=== PATIENT | female | born 1945 | race Caucasian/White ===

== ENCOUNTER 2021-01-23 14:07 | Inpatient (IN) | payer MEDICARE, SELFPAY ==
[2021-01-23] VITALS (19 sets, daily range): BP systolic 95–148; BP diastolic 51–90; PULSE 82–90; RESP 16–29; TEMP 36.2; O2SAT 93–100
--- NOTE | ~2021-01-23 | NM_ITS ---
EXAMINATION: NM lupe stress w perfusion DATE: 01/31/2021 13:54 INDICATION: Chest pain. TECHNIQUE: Rest images were obtained following intravenous administration of 10.9 mCi Tc99m tetrofosm in (Myoview). The patient was infused intravenously with Lexiscan (regadenoson). Then, 34 mCi Tc99m t etrofosmin (Myoview) was administered intravenously, and stress images were obtained. Data was recons tructed into short axis and horizontal and vertical long axis SPECT images. Gated SPECT images were a lso obtained. COMPARISON: None. FINDINGS: There is a small, mild, fixed perfusion defect involving left ventricular apex and apical i nferior and apical lateral segments, consistent with infarct. No reversible component to suggest isch emia. There is apical hypokinesis. Left ventricular ejection fraction measures 41%. IMPRESSION: 1. Small area of mild infarct involving the left ventricular apex and apical inferior and apical late ral segments. 2. Apical hypokinesis with left ventricular ejection fraction measuring 41%. Reviewed, dictated and finalized at location A. HASING AND CLAIMS SUPERVISOR IMPRESSION: 1. Small area of mild infarct involving the left ventricular apex and apical in ferior and apical lateral segments. 2. Apical hypokinesis with left ventricular ejection fraction measuring 41%.
--- NOTE | ~2021-01-23 | US_ITS ---
EXAMINATION: US venous doppler LE EXAM DATE: 01/24/2021 09:57 INDICATION: Bilateral leg edema. TECHNIQUE: Multiple grayscale, color flow and Doppler images of the lower extremity deep venous syste ms bilaterally were obtained and reviewed. There is no prior study for comparison. FINDINGS: Right side: The right common femoral, femoral and profunda veins demonstrate normal color flow, respi ratory variation, augmentation and compressibility. Compressibility, color flow confirmed within the right popliteal, posterior tibial, peroneal, and greater saphenous veins. Left side: The left common femoral, femoral and profunda veins demonstrate normal color flow, respira tory variation, augmentation and compressibility. Compressibility, color flow confirmed within the l eft popliteal, posterior tibial, peroneal, and greater saphenous veins. IMPRESSION: No lower extremity deep venous thrombosis bilaterally. Reviewed, dictated and finalized at location B. [place] MEDIA PROJECT MANAGER
--- NOTE | ~2021-01-23 | XR_ITS ---
XR chest port-a-cath/central DATE: 01/25/2021 18:57 INDICATION: Tunneled dialysis catheter placement TECHNIQUE: Portable upright AP chest on 01/25/2021 at 1854 hours COMPARISON: 01/23/2021 PA and lateral chest FINDINGS: Left internal jugular dialysis catheter tip overlies the upper right atrium. Heart size is within normal range. There is mild infiltrate or atelectasis in the left upper and both mid and lower lung zones, most pro minent in the left lower lobe in the retrocardiac area, some air bronchograms. Mild bilateral pleural effusions. No pneumothorax. Aortic arch calcification. Diffuse osteopenia. Surgical clips overlie the left axillary area and left chest. Status post cholecystectomy IMPRESSION: Left internal jugular dialysis catheter tip overlies right atrium Mild infiltrate and/atelectasis left upper and both mid and lower lung zones Small bilateral pleural effusions Reviewed, dictated and finalized at Location A. Reviewed, dictated and finalized at location A. LE BREAKER
--- NOTE | ~2021-01-23 | XR_ITS ---
EXAMINATION: XR chest 2V EXAM DATE: 01/23/2021 14:38 INDICATION: Shortness of breath and chest pain. TECHNIQUE: Frontal and lateral projections of the chest obtained and reviewed. There is no prior nabeel dy for comparison. FINDINGS: Small to moderate left, small pleural effusions. Heart is normal in size. There is no pne umothorax suspected. Basilar increased density probably atelectasis. Pneumonia not excludable. Left a xillary surgical clips. IMPRESSION: 1. Small to moderate left, small pleural effusions with adjacent atelectasis. 2. Pneumonia not excludable. Reviewed, dictated and finalized at location B. AND WASHER
--- NOTE | ~2021-01-23 | XR_ITS ---
XR fl guide central line place DATE: 01/25/2021 18:52 INDICATION: Tunneled dialysis catheter placement TECHNIQUE: Single portable C-arm spot exposure of the chest 8.0 seconds fluoroscopy time 2.30 mGy COMPARISON: 01/25/2021 2 view chest FINDINGS: Left internal jugular dual-lumen catheter is noted, the distal tip not included in this exp osure. IMPRESSION: Left internal jugular dialysis catheter Reviewed, dictated and finalized at Location A. Reviewed, dictated and finalized at location A. CAL GLASS SAWYER
--- NOTE | 2021-01-23 14:14 | ECG_ITS ---
Measurements Intervals [place] Rate: 83 P: 44 [place]: 145 QRS: 46 QRSD: 88 T: 79 QT: 418 QTc: 493 Interpretive Statements SINUS RHYTHM BORDERLINE ST ABNORMALITY- ANTEROLATERAL LEADS BASELINE ARTIFACT- I, AVL BORDERLINE ECG Electronically Signed On 01-23-2021 14:40:30 ATTORNEY LAWYER by Jorge Alberto Alexander D.O.
[2021-01-23 14:35] LABS: Basophils Percent Auto 0.3 % (0.2-1.2); Eosinophils Absolute Auto 0.3 K/mm3 (0-0.3); Eosinophils Percent Auto 3.5 % (0-4.4); Hematocrit 22.8 % (37.0-47.0); Hemoglobin 7.4 g/dL (12.0-15.0); Immature Granulocyte Absolute 0.02 K/mm3 (0.00-0.031); Immature Granulocyte Percent A 0.3 % (0-0.5); Lymphocytes Absolute Auto 1.18 K/mm3 (0.9-3.2); Lymphocytes Percent Auto 15.1 % (18.3-44.2); Mean Corpuscular HGB Conc 32.5 g/dl (32-36); Mean Corpuscular Hemoglobin 29.7 pg (26-34); Mean Corpuscular Volume 91.6 fl (80-100); Mean Platelet Volume 10.3 fl (7.4-10.4); Monocytes Absolute Auto 0.6 K/mm3 (0.1-0.6); Monocytes Percent Auto 7.8 % (2.6-8.5); Neutrophils Absolute Auto 5.7 K/mm3 (1.3-6.7); Platelet Count Result 280 k/mm3 (150-375); Red Blood Count 2.49 M/mm3 (4.2-5.4); Red Cell Distribution Width 11.9 % (11.5-14.5); White Blood Count 7.8 K/mm3 (4.5-10.0)
[2021-01-23 14:44] LABS: INR 1.2; Partial Thromboplastin Time 27.5 SECONDS (22.3-36.8); Prothrombin Time 14.7 Seconds (11.1-14.7)
[2021-01-23 14:46] LABS: Alanine Aminotransferase 20 U/L (4-35); Albumin Level 3.9 g/dL (3.5-5.1); Alkaline Phosphatase 81 U/L (38-126); Anion Gap 12 mmol/L (8-16); Aspartate Amino Transferase 30 U/L (14-36); Bilirubin,Total 0.3 mg/dL (0.2-1.3); Blood Urea Nitrogen 71 mg/dL (7-17); Calcium 8.4 mg/dL (8.4-10.2); Carbon Dioxide 23 mmol/L (22-30); Chloride 106 mmol/L (98-107); Estimated CRCL calculation 10 ml/min; Estimated Glomerular Filt Rate 10; Glucose 148 mg/dL (65-110); Lipase 155 U/L (23-300); Potassium 3.8 mmol/L (3.4-5.0); Sodium 141 mmol/L (137-145)
[2021-01-23 15:00] LABS: Troponin I 0.053 ng/mL (0.000-0.034)
--- NOTE | 2021-01-23 15:55 | ED.GENADULT ---
HPI - General Adult General Chief complaint: Shortness of Breath/Dyspnea Stated complaint: sob Time Seen by Provider: 01/23/21 15:37 History of Present Illness HPI narrative: Patient is a 75-year-old female presents the emergency department with chief complaint of shortness of breath. Patient reports she has history of lung cancer also has history of chronic renal disease and is followed by nephrology. The patient states that she has had a fistula placed in preparation for eventual starting of dialysis the patient states she is been progressively more short of breath has had increasing peripheral edema and has now having to sleep in a recliner. Related Data Allergies Allergy/AdvReac Type Severity Reaction Status Date / Time No Known Allergies Allergy Unknown Verified 01/23/21 15:55 Review of Systems Review of Systems: A 10 system review of systems was completed on the patient and is negative except for what is stated in the HPI. Nursing and ancillary documentation was reviewed. Exam Narrative: GENERAL: Well-appearing, well-nourished, and in no acute distress. HEAD: Normocephalic, atraumatic. EYES: PERRLA and EOMI. ENT: Nares clear, no rhinorrhea or epistaxis. Mucous membranes moist. NECK: Supple. CHEST: Clear to auscultation. Mild respiratory distress. HEART: Regular rate and rhythm. No murmur heard. Normal peripheral pulses. ABDOMEN: Soft, nontender, nondistended, normal active bowel sounds. EXTREMITIES: Normal range of motion. +1 edema. SKIN: Warm, dry, no rash. NEURO: No focal deficits. Alert and oriented x3. PSYCH: Normal mood and affect. Course Course Emergency Course: Shows a sinus rhythm rate of [address] elevation or ST depression The patient's creatinine is 4.3 she has a BUN of 71. The patient's potassium is 3.8 her CO2 is 23. Patient has a troponin of 0.053 Case was discussed with the patient's spring coiler Dr. Jose levin the patient will be started on Bumex 2 mg every 12 hrs The plan will be to admit the patient to the hospitalist service for further intervention Vital Signs Vital signs: Vital Signs Temperature 36.2 C L 01/23/21 14:10 Pulse Rate 89 01/23/21 14:10 Respiratory Rate 18 01/23/21 14:10 Blood Pressure 141/55 H 01/23/21 14:10 Pulse Oximetry 100 01/23/21 14:10 Temperature 36.2 C L 01/23/21 14:10 Pulse Rate 84 01/23/21 15:54 Respiratory Rate 17 01/23/21 15:53 Blood Pressure 95/74 L 01/23/21 15:53 Pulse Oximetry 95 01/23/21 15:54 Medical Decision Making Vital Signs Vital Signs: Vital Signs Temperature 36.2 C L 01/23/21 14:10 Pulse Rate 89 01/23/21 14:10 Respiratory Rate 18 01/23/21 14:10 Blood Pressure 141/55 H 01/23/21 14:10 Pulse Oximetry 100 01/23/21 14:10 Temperature 36.2 C L 01/23/21 14:10 Pulse Rate 84 01/23/21 15:54 Respiratory Rate 17 01/23/21 15:53 Blood Pressure 95/74 L 01/23/21 15:53 Pulse Oximetry 95 01/23/21 15:54 Lab Data Result diagrams: 01/23/21 14:24 01/23/21 14:24 Labs: Lab Results 01/23/21 01/23/21 01/23/21 Range/Units 14:24 14:24 14:24 WBC 7.8 (4.5-10.0) K/mm3 RBC 2.49 L (4.2-5.4) M/mm3 Hgb 7.4 L (12.0-15.0) g/dL Hct 22.8 L (37.0-47.0) % MCV 91.6 (80-100) fl MCH 29.7 (26-34) pg MCHC 32.5 (32-36) g/dl RDW 11.9 (11.5-14.5) % Plt Count 280 (150-375) k/mm3 MPV 10.3 (7.4-10.4) fl Immature Gran % (Auto) 0.3 (0-0.5) % Neut % (Auto) 73.0 (45.5-73.1) % Lymph % (Auto) 15.1 L (18.3-44.2) % [place] % (Auto) 7.8 (2.6-8.5) % Eos % (Auto) 3.5 (0-4.4) % Baso % (Auto) 0.3 (0.2-1.2) % Lymph # (Auto) 1.18 (0.9-3.2) K/mm3 [place] # (Auto) 0.6 (0.1-0.6) K/mm3 Eos # (Auto) 0.3 (0-0.3) K/mm3 Baso # (Auto) 0.0 (0.0-0.1) K/mm3 Abs Immat Gran (auto) 0.02 (0.00-0.031) K/mm3 Absolute Neuts (auto) 5.7 (1.3-6.7) K/mm3 Absolute Nucleated RBC 0.0 (0.0-0.012) K/mm3 Nucleated RBC
[2021-01-23] MEDS: ASPIRIN 81 MG CHEWABLE TABLET 324 MG PO (16:32)
[2021-01-23] MEDS: BUMETANIDE INJ 1 MG/4 ML VIAL 2 MG IV PUSH (16:40)
--- NOTE | 2021-01-23 19:30 | PM.IMHP ---
H&P: HPI History of Present Illness Date/Time: 01/23/21 19:30 Chief Complaint: Shortness of breath. Narrative: This is a very pleasant 75-year-old female with chronic kidney disease not yet on dialysis, insulin-dependent type 2 diabetes, hypertension, seizure disorder, and breast cancer who presented to the emergency department earlier today via private vehicle from home for evaluation of shortness of breath. A right upper extremity AV fistula was created several months ago in anticipation for dialysis and she was hoping to hold off until after the holidays however she has had increasing edema, shortness of breath, and orthopnea. Her shortness of breath is so severe that she is now getting winded when getting dressed. Additionally she reports a 22 lb weight gain in the last 6 months. She thus came in today and it sounds as though Dr. Campos is going to initiate dialysis tomorrow. She denies fever, chills, sweats, cold and flu symptoms, chest pain and pleuritic pain. She has had some nausea and decreased appetite but denies vomiting. Review of Systems Review of Systems: Twelve systems were reviewed with pertinent positives and negatives as per HPI. No cold or flu symptoms. No sick contacts. She has not had any significant high or low glucose readings recently. No blurry vision, polydipsia, or polyuria. She does urinate and has not noticed a change in urine output. Except as documented, all other systems were reviewed and are negative. 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 Status post left breast mastectomy and chemoradiation. Currently taking Faslodex. Chronic anemia Chronic kidney disease, stage 5 Depression with anxiety Hypertension Insulin dependent type 2 diabetes mellitus Seizure disorder Vitamin D deficiency Surgical History Surgical History (Updated 01/23/21 @ 22:56 by Mackenzie Howell PA-C) History of cholecystectomy History of hysterectomy History of left mastectomy Status post creation of arteriovenous fistula Family History Family History (Updated 01/23/21 @ 22:56 by Mackenzie Howell PA-C) Other Chronic kidney disease Diabetes mellitus Hypertension Social History Social History (Updated 01/23/21 @ 22:57 by Mackenzie Howell PA-C) Social History: The patient lives in her own home in [place]. She is and has no children. 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 She smoked remotely and quit over 40 years ago. No alcohol or illicit substance abuse. She designates her dear friend Annie Meadows as her surrogate decision maker and she wishes to be a full code. Meds Home Medications and Allergies Home Medications Medication Instructions Recorded Confirmed Type amlodipine 01/23/21 History diclofenac sodium [Voltaren] TOPICAL 01/23/21 History ergocalciferol (vitamin D2) 01/23/21 History [Vitamin D2] furosemide 01/23/21 History insulin glargine [Lantus Solostar SUBCUT 01/23/21 History U-100 Insulin] levetiracetam PO 01/23/21 History oxycodone 5 mg PO Q4H PRN 01/23/21 01/23/21 History paroxetine HCl mg PO 01/23/21 History Allergies Allergy/AdvReac Type Severity Reaction Status Date / Time No Known Allergies Allergy Unknown Verified 01/23/21 15:55 Vital Signs Vital Signs - 24 hr 01/23/21 14:10 01/23/21 15:39 01/23/21 15:40 Temperature 97.1 F L Pulse Rate 89 90 Respiratory Rate 18 24 H Blood Pressure 141/55 H 130/90 Pulse Oximetry 100 96 94 01/23/21 15:46 01/23/21 15:53 01/23/21 15:54 Temperature Pulse Rate 86 84 84 Respiratory Rate 23 H 17 Blood Pressure 95/74 L 95/74 L Pulse Oximetry 97 97 95 01/23/21 16:33 01/23/21 17:01 01/23/21 17:31 Temperature Pulse Rate 84 82 86 Respiratory Rate 24 H 23 H 23 H Blood Pressure 130/74 134/55 L 140/67 Pulse Oximetry 95 96 95 01/23/21 18:01 01/23/21 19:01 01/23/21 20:
[2021-01-23 19:47] LABS: Troponin I 0.054 ng/mL (0.000-0.034)
[2021-01-23 20:58] LABS: Troponin I 0.058 ng/mL (0.000-0.034)
[2021-01-23 23:53] LABS: Hemoglobin A1C 5.9 % (<5.7)
[2021-01-24] VITALS (12 sets, daily range): BP systolic 128–149; BP diastolic 56–104; PULSE 74–106; RESP 18–23; TEMP 36.7–37.2; O2SAT 93–97; BMI 30.5
--- NOTE | 2021-01-24 00:47 | ADMGEN ---
This patient, Diamond Peace, was admitted to [facility] Surg Room 313-01 @ 2330. Patient/family oriented to hospital policies and general routines including ID bracelet, bed and alarms, visiting hours, pain management, procedures, bathroom and other care routines, personal items, smoking policy, room service/diet, and visiting hours. Information on how to activate the Rapid Response Team has been discussed. Patient/Family are encouraged to report perceived risks to care and to ask questions if they do not understand what they are told or what they should do.
[2021-01-24] MEDS: GLUCOSE ORAL GEL 15 GM OF GLUCSE IN 37.5 GM TUBE PO (01:05)
[2021-01-24 01:38] LABS: Glucose Point of Care 95 mg/dl (65-105)
[2021-01-24 01:38] LABS: Glucose Point of Care 31 mg/dl (65-105)
[2021-01-24 07:02] LABS: Hematocrit 22.6 % (37.0-47.0); Hemoglobin 7.3 g/dL (12.0-15.0); Mean Corpuscular HGB Conc 32.3 g/dl (32-36); Mean Corpuscular Hemoglobin 29.9 pg (26-34); Mean Corpuscular Volume 92.6 fl (80-100); Mean Platelet Volume 10.7 fl (7.4-10.4); Platelet Count Result 266 k/mm3 (150-375); Red Blood Count 2.44 M/mm3 (4.2-5.4); Red Cell Distribution Width 11.9 % (11.5-14.5); White Blood Count 7.3 K/mm3 (4.5-10.0)
[2021-01-24 07:16] LABS: Alanine Aminotransferase 18 U/L (4-35); Albumin Level 3.8 g/dL (3.5-5.1); Alkaline Phosphatase 70 U/L (38-126); Anion Gap 10 mmol/L (8-16); Aspartate Amino Transferase 23 U/L (14-36); Bilirubin,Total 0.3 mg/dL (0.2-1.3); Blood Urea Nitrogen 77 mg/dL (7-17); Calcium 8.3 mg/dL (8.4-10.2); Carbon Dioxide 24 mmol/L (22-30); Chloride 107 mmol/L (98-107); Estimated CRCL calculation 9 ml/min; Estimated Glomerular Filt Rate 9; Glucose 79 mg/dL (65-110); Magnesium 2.4 mg/dL (1.6-2.3); Phosphorus 4.9 mg/dL (2.5-4.5); Potassium 4.2 mmol/L (3.4-5.0); Sodium 141 mmol/L (137-145)
[2021-01-24 07:42] LABS: Thyroid Stimulating Hormone Reflex 0.871 uIU/mL (0.465-4.68)
[2021-01-24 07:59] LABS: Glucose Point of Care 43 mg/dl (65-105)
[2021-01-24 09:09] LABS: Glucose Point of Care 114 mg/dl (65-105)
[2021-01-24] MEDS: HEPARIN SODIUM 5,000 UNITS/ML VIAL 5000 UNITS SUB-Q ×2 (10:57→23:25)
[2021-01-24] MEDS: BUMETANIDE INJ 2.5 MG/10 ML VIAL 2 MG IV PUSH ×2 (10:57→18:56)
[2021-01-24 11:40] LABS: Glucose Point of Care 79 mg/dl (65-105)
--- NOTE | 2021-01-24 12:35 | PM.CNNEP ---
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 she has a AVF in place but it is still not mature enought to use hopefully, her symptoms should improve with more aggressive fluid removal with dialysis will need outpatient dialysis on discharge -- likely [facility] per patient's preference (2) Volume overload: Code(s): E87.70 - Fluid overload, unspecified Status: Acute Assessment and Plan: as evidenced by history as well as imaging studies on admission on IV bumex at this time suspect dialysis will do a better job of fluid removal (3) Anemia: Qualifiers: Anemia type: unspecified type Qualified Code(s): D64.9 - Anemia, unspecified Code(s): D64.9 - Anemia, unspecified Status: Chronic Assessment and Plan: partly related to CKD but underlying malignancy could be playing a role start Epogen with dialysis initiation PRBC transfusion per protocol follow trend of H/H (4) Hypertension: Code(s): I10 - Essential (primary) hypertension Status: Chronic Assessment and Plan: reasonable control at this time follow trend of hemodynamics (5) Insulin dependent type 2 diabetes mellitus: Code(s): E11.9 - Type 2 diabetes mellitus without complications; Z79.4 - ferry terminal agent (current) use of insulin Status: Chronic Assessment and Plan: follow accuchecks glycemic control Long and extensive discussion (> 20 minutes) with patient regarding her advanced kidney disease and symptoms leading to admission; discussed hemodialysis including risk, benefits, pros, cons...etc as well as the need for placement of a tunneled HD catheter; she is agreeable to proceed. Will continue to follow. History of Present Illness Reason for Consult Consult date: 01/24/21 Reason for consult: chronic renal failure Chief Complaint Chief complaint: Fluid Overload,Anemia Chronic Renal Failure History of Present Illness Narrative: The patient is a 75-year-old female with a past medical history as outlined below who presented to [facility] Emergency room for further evaluation of shortness of breath. The patient has had shortness of breath for the last few weeks and despite increasing her outpatient diuretic regimen, her shortness of breath has continued to worsen as well as increase in lower extremity edema. She has known advanced chronic kidney disease and in anticipation of the fact that she would likely need dialysis in the future, she had an AV fistula created several months ago but it still to soon for it to be used. She had hoped to hold off dialysis until after the holidays but her symptoms of progressive shortness of breath and increasing edema of led her to believe that she may not be able to do so which prompted her visit to the ER. Her shortness of breath is severe that she gets winded just getting up and moving around and even doing simple tasks of Danny daily living including getting dressed. Furthermore, she reports a 20-22 lb weight gain in the last several months that she believes is all fluid. Workup and evaluation emergency room demonstrated labs consistent with her known history of Gregorio chronic kidney disease as well as evidence of volume overload with regard to her lower extremity edema and chest x-ray findings. Her CBC was also notable for anemia probably related to both her kidney disease as well as her underlying history of cancer/malignancy. She did not appear to be any acute distress but it seemed visibly apparent that she was
--- NOTE | 2021-01-24 13:33 | PM.IMPN ---
Progress Note: A&P Assessment and Plan (1) Volume overload: Code(s): E87.70 - Fluid overload, unspecified Status: Acute Assessment and Plan: pt for dialysis today pt started on IV Bumex 2 mg q.12 hours in the interim. (2) Chronic kidney disease, stage 5: Code(s): N18.5 - Chronic kidney disease, stage 5 Status: Chronic Assessment and Plan: Pt to start dialysis (3) Elevated troponin: Code(s): R77.8 - Other specified abnormalities of plasma proteins Status: Acute Assessment and Plan: Chest pain resolved. Likely elevated in the setting of renal failure. (4) Chronic anemia: Code(s): D64.9 - Anemia, unspecified Status: Acute Assessment and Plan: Continue to monitor pt may benefit from epogen (5) Insulin dependent type 2 diabetes mellitus: Code(s): E11.9 - Type 2 diabetes mellitus without complications; Z79.4 - correction (current) use of insulin Status: Chronic Assessment and Plan: Continue basal insulin. Initiate sliding scale insulin, Accu-Cheks, and hypoglycemic protocol. Check hemoglobin A1c. (6) Seizure disorder: Code(s): G40.909 - Epilepsy, unspecified, not intractable, without status epilepticus Status: Acute Assessment and Plan: Continue levetiracetam level is pending (7) Hypertension: Code(s): I10 - Essential (primary) hypertension Status: Chronic Assessment and Plan: Blood pressures were reviewed and they are reasonably well controlled. Continue antihypertensives and monitor closely. Subjective Date/time seen: 01/24/21 13:33 Interval history: 75-year-old female with chronic kidney disease not yet on dialysis, insulin-dependent type 2 diabetes, hypertension, seizure disorder, and breast cancer who presented to the emergency department earlier today via private vehicle from home for evaluation of shortness of breath. pt here with increasing sob. Pt due to go to dialysis today for the first time. Pt already has dialysis access. Review of Systems Review of Systems: All systems reviewed & are unremarkable except as noted in HPI and below Exam Narrative: General: Mildly ill-appearing female sitting up in bed. Respiratory: Bl crackles at bases Cardiovascular: Regular rate and rhythm with S1-S2. Gastrointestinal: Abdomen is soft, nontender, and nondistended with positive bowel sounds. Skin: Warm and dry. Generalized pallor. Extremities: No cyanosis or clubbing. Neurological: Alert. Cranial nerves 2-12 are grossly intact. No gross focal deficits to casual conversation. Psychiatric: Pleasant and cooperative with normal mood and affect. Judgment and insight intact. Objective Data Vital Signs Vital Signs: Vital Signs - 24 hr 01/23/21 14:10 01/23/21 15:39 01/23/21 15:40 Temperature 36.2 C L Pulse Rate 89 90 Respiratory Rate 18 24 H Blood Pressure 141/55 H 130/90 Pulse Oximetry 100 96 94 01/23/21 15:46 01/23/21 15:53 01/23/21 15:54 Temperature Pulse Rate 86 84 84 Respiratory Rate 23 H 17 Blood Pressure 95/74 L 95/74 L Pulse Oximetry 97 97 95 01/23/21 16:33 01/23/21 17:01 01/23/21 17:31 Temperature Pulse Rate 84 82 86 Respiratory Rate 24 H 23 H 23 H Blood Pressure 130/74 134/55 L 140/67 Pulse Oximetry 95 96 95 01/23/21 18:01 01/23/21 19:01 01/23/21 20:01 Temperature Pulse Rate 90 87 84 Respiratory Rate 29 H 28 H 24 H Blood Pressure 143/59 H 129/51 L 146/64 H Pulse Oximetry 94 94 93 01/23/21 20:31 01/23/21 21:01 01/23/21 21:31 Temperature Pulse Rate 85 83 84 Respiratory Rate 24 H 16 20 Blood Pressure 135/60 142/67 H 133/64 Pulse Oximetry 95 94 94 01/23/21 22:01 01/23/21 22:31 01/23/21 23:01 Temperature Pulse Rate 87 85 85 Respiratory Rate 25 H 23 H 25 H Blood Pressure 148/69 H 140/69 133/71 Pulse Oximetry 93 95 94 01/23/21 23:31 01/24/21 00:01 01/24/21 00:25 Temperature 36
[2021-01-24 14:20] LABS: Anion Gap 7 mmol/L (8-16); Blood Urea Nitrogen 76 mg/dL (7-17); Calcium 8.3 mg/dL (8.4-10.2); Carbon Dioxide 24 mmol/L (22-30); Chloride 107 mmol/L (98-107); Estimated CRCL calculation 9 ml/min; Estimated Glomerular Filt Rate 10; Glucose 142 mg/dL (65-110); Hematocrit 23.6 % (37.0-47.0); Hemoglobin 7.6 g/dL (12.0-15.0); Mean Corpuscular HGB Conc 32.2 g/dl (32-36); Mean Corpuscular Hemoglobin 29.6 pg (26-34); Mean Corpuscular Volume 91.8 fl (80-100); Mean Platelet Volume 10.9 fl (7.4-10.4); Platelet Count Result 256 k/mm3 (150-375); Potassium 4.3 mmol/L (3.4-5.0); Red Blood Count 2.57 M/mm3 (4.2-5.4); Red Cell Distribution Width 11.9 % (11.5-14.5); Sodium 138 mmol/L (137-145); White Blood Count 7.8 K/mm3 (4.5-10.0)
--- NOTE | 2021-01-24 14:27 | PM.CNGS ---
Assessment and Plan Assessment and plan (1) Acute on chronic renal insufficiency: Code(s): N28.9 - Disorder of kidney and ureter, unspecified; N18.9 - Chronic kidney disease, unspecified Status: Acute Assessment and Plan: will setup for placement of tunneled hemodialysis catheter in the operating room History of Present Illness Consult details Consult date: 01/24/21 Reason for consult: other (acute renal failure) Requesting physician: Shawn Campos MD Narrative: The patient is a 75-year-old female with multiple medical issues presenting with severe shortness of breath. Workup is significant for acute on chronic renal failure with secondary fluid overload. The patient has been aggressively diuresed, however it is felt that she would be better served with hemodialysis. The patient has had a AV fistula placed, however it is not quite matured enough yet for use. We are consulted at this time for placement tunneled hemodialysis catheter. The patient denies any previous central venous catheterization. Review of Systems Constitutional: Constitutional: Denies anorexia, Denies body ache(s), Denies chills, Reports fatigue, Denies fever(s), Denies increased appetite, Reports lethargy, Reports malaise, Denies night sweats, Denies poor appetite, Reports weakness, Reports weight gain and Denies weight loss Eyes: Eyes: Reports no additional eye complaints ENT: Reports system reviewed and no additional complaints, except as documented Cardiovascular: Cardiovascular: Denies chest pain, Reports pedal edema, Reports edema, Reports dyspnea, Reports dyspnea on exertion and Reports orthopnea Respiratory: Respiratory: Reports dyspnea and Reports dyspnea on exertion Gastrointestinal: Gastrointestinal: Reports no additional gastrointestinal complaints Genitourinary: Genitourinary: Reports no additional female genitourinary complaints Musculoskeletal: Musculoskeletal: Reports no additional musculoskeletal complaints Integumentary/Breasts: Skin/Breast: Reports system reviewed and no additional complaints, except as docu Neurologic: Reports system reviewed and no additional complaints, except as documented Psychiatric: Psychiatric: Reports no additional psychiatric complaints Endocrine: Endocrine: Reports no additional endocrine complaints Hematologic/Lymphatic: Hematologic/Lymphatic: Reports no additional hematologic/lymphatic complaints Allergic/Immunologic: Allergic/Immunologic: Reports no additional allergic/immunologic complaints PMFSH Past Medical History Medical History 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 Status post left breast mastectomy and chemoradiation. Currently taking Faslodex. Chronic anemia Chronic kidney disease, stage 5 Depression with anxiety Hypertension Insulin dependent type 2 diabetes mellitus Seizure disorder Vitamin D deficiency Surgical History Surgical History History of cholecystectomy History of hysterectomy History of left mastectomy Status post creation of arteriovenous fistula Family History Family History Other Chronic kidney disease Diabetes mellitus Hypertension Social History Social History Social History: The patient lives in her own home in [place]. She is and has no children. 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 She smoked remotely and quit over 40 years ago. No alcohol or illicit substance abuse. She designates her dear friend Annie Meadows as her surrogate decision maker and she wishes to be a full code. Smoking packs per day: 1 Smoking cigarettes per day: 20.0 Smoking status: Former smoker Alcohol intake: never Substance use: never Spiritual care concerns: No Meds Home Medications and Allergies Ho
[2021-01-24 16:10] LABS: Glucose Point of Care 185 mg/dl (65-105)
[2021-01-24 20:24] LABS: Glucose Point of Care 135 mg/dl (65-105)
[2021-01-25] VITALS (14 sets, daily range): BP systolic 122–142; BP diastolic 46–90; PULSE 81–91; RESP 16–20; TEMP 36.6–37.2; O2SAT 92–100
[2021-01-25 03:38] LABS: Glucose Point of Care 94 mg/dl (65-105)
[2021-01-25 07:17] LABS: Albumin Level 3.7 g/dL (3.5-5.1); Anion Gap 10 mmol/L (8-16); Blood Urea Nitrogen 74 mg/dL (7-17); Calcium 8.3 mg/dL (8.4-10.2); Carbon Dioxide 25 mmol/L (22-30); Chloride 108 mmol/L (98-107); Estimated CRCL calculation 10 ml/min; Estimated Glomerular Filt Rate 10; Glucose 83 mg/dL (65-110); Phosphorus 4.7 mg/dL (2.5-4.5); Potassium 4.1 mmol/L (3.4-5.0); Sodium 143 mmol/L (137-145)
[2021-01-25 08:09] LABS: Hepatitis B Surface Antigen Negative (Negative)
[2021-01-25 08:14] LABS: HAV RESULT Negative (Negative); Hepatitis B Core IgM Result Negative (Negative)
[2021-01-25 08:26] LABS: Hepatitis B Surface Anti Res Negative; Hepatitis C Virus Antibody Negative (Negative)
[2021-01-25 08:29] LABS: Glucose Point of Care 113 mg/dl (65-105)
[2021-01-25] MEDS: BUMETANIDE INJ 2.5 MG/10 ML VIAL 2 MG IV PUSH (09:03)
[2021-01-25] MEDS: levETIRAcetam 250 MG TABLET PO (09:03)
[2021-01-25] MEDS: HEPARIN SODIUM 5,000 UNITS/ML VIAL 5000 UNITS SUB-Q ×2 (09:06→18:26)
[2021-01-25 09:38] LABS: Iron 55 ug/dL (37-170)
[2021-01-25 09:50] LABS: Percent Iron Saturation 23 % (20-50)
[2021-01-25 11:39] LABS: Glucose Point of Care 88 mg/dl (65-105)
--- NOTE | 2021-01-25 12:57 | P.PNNP_ITS ---
Progress Note: A&P Assessment and Plan (1) End stage renal disease: Code(s): N18.6 - End stage renal disease Status: Acute Assessment and Plan: * suspect disease has progressed to the point of requiring dialysis * no critical electrolyte abnormalities but fluid status has become increasing difficult to control with just diuretics * Surgery to place tunneled HD catheter today for initiation of FLORAL MANAGER/dialysis * she has a AVF in place but it is still not mature enought to use * hopefully, her symptoms should improve with more aggressive fluid removal with dialysis * will need outpatient dialysis on discharge -- [facility] per patient's preference (2) Volume overload: Code(s): E87.70 - Fluid overload, unspecified Status: Acute Assessment and Plan: * as evidenced by history as well as imaging studies on admission * on IV bumex at this time * suspect dialysis will do a better job of fluid removal (3) Anemia: Qualifiers: Anemia type: unspecified type Qualified Code(s): D64.9 - Anemia, unspecified Code(s): D64.9 - Anemia, unspecified Status: Chronic Assessment and Plan: * partly related to CKD but underlying malignancy could be playing a role * to start Epogen with dialysis initiation * PRBC transfusion per protocol * follow trend of H/H (4) Hypertension: Code(s): I10 - Essential (primary) hypertension Status: Chronic Assessment and Plan: * reasonable control at this time * follow trend of hemodynamics (5) Insulin dependent type 2 diabetes mellitus: Code(s): E11.9 - Type 2 diabetes mellitus without complications; Z79.4 - senior living (current) use of insulin Status: Chronic Assessment and Plan: * follow accuchecks * glycemic control Will continue to follow. Subjective Date/time seen: 01/25/21 12:57 Appears in no acute distress but still feels short of breath with just simple activity (i.e walking to the bathroom in her room); better urine output noted with use of IV bumex in the last 24 hours; noted plans for HD catheter placement later today; no issues/events overnight or earlier this morning. Exam Narrative: General: WD/WN female in NAD Heart: normal S1 and S2; no rub Lungs: decreased with a some bibasilar crackles Abdomen: soft, nontender, nondistended, positive bowel sounds Extremities: no cyanosis or clubbing; 2+ edema Skin: warm and dry Objective Data Vital Signs Vital Signs: Vital Signs Temp Pulse Resp BP Pulse Ox 01/25/21 12:00 91 01/25/21 08:00 84 18 97 01/25/21 05:55 37.2 C 84 18 134/61 97 01/25/21 04:00 84 01/25/21 00:00 83 01/24/21 22:00 37.2 C 91 20 149/63 H 97 01/24/21 20:35 91 20 97 01/24/21 20:00 86 Intake/Output Intake/Output: Intake & Output 01/22/21 01/23/21 01/24/21 01/25/21 23:59 23:59 23:59 23:59 Intake Total 492 250 Output Total 200 1100 Balance 292 -850 Meds/Results Medications: Active Medications Generic Name Dose Route Start Last Admin Trade Name Freq PRN Reason Stop Dose Admin Bumetanide 2 mg 01/24/21 09:00 01/25/21 09:03 Bumetanide Inj 2.5 Mg/10 Ml Vial IV PUSH 2 mg BID [facility] Administra
--- NOTE | 2021-01-25 12:57 | PM.PNNEP ---
Progress Note: A&P Assessment and Plan (1) End stage renal disease: Code(s): N18.6 - End stage renal disease Status: Acute Assessment and Plan: suspect disease has progressed to the point of requiring dialysis no critical electrolyte abnormalities but fluid status has become increasing difficult to control with just diuretics Surgery to place tunneled HD catheter today for initiation of FLAT FOLDER/dialysis she has a AVF in place but it is still not mature enought to use hopefully, her symptoms should improve with more aggressive fluid removal with dialysis will need outpatient dialysis on discharge -- [facility] per patient's preference (2) Volume overload: Code(s): E87.70 - Fluid overload, unspecified Status: Acute Assessment and Plan: as evidenced by history as well as imaging studies on admission on IV bumex at this time suspect dialysis will do a better job of fluid removal (3) Anemia: Qualifiers: Anemia type: unspecified type Qualified Code(s): D64.9 - Anemia, unspecified Code(s): D64.9 - Anemia, unspecified Status: Chronic Assessment and Plan: partly related to CKD but underlying malignancy could be playing a role to start Epogen with dialysis initiation PRBC transfusion per protocol follow trend of H/H (4) Hypertension: Code(s): I10 - Essential (primary) hypertension Status: Chronic Assessment and Plan: reasonable control at this time follow trend of hemodynamics (5) Insulin dependent type 2 diabetes mellitus: Code(s): E11.9 - Type 2 diabetes mellitus without complications; 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 Subjective Date/time seen: 01/25/21 12:57 Appears in no acute distress but still feels short of breath with just simple activity (i.e walking to the bathroom in her room); better urine output noted with use of IV bumex in the last 24 hours; noted plans for HD catheter placement later today; no issues/events overnight or earlier this morning. Exam Narrative: General: WD/WN female in NAD Heart: normal S1 and S2; no rub Lungs: decreased with a some bibasilar crackles Abdomen: soft, nontender, nondistended, positive bowel sounds Extremities: no cyanosis or clubbing; 2+ edema Skin: warm and dry Objective Data Vital Signs Vital Signs: Vital Signs Temp Pulse Resp BP Pulse Ox 01/25/21 12:00 91 01/25/21 08:00 84 18 97 01/25/21 05:55 37.2 C 84 18 134/61 97 01/25/21 04:00 84 01/25/21 00:00 83 01/24/21 22:00 37.2 C 91 20 149/63 H 97 01/24/21 20:35 91 20 97 01/24/21 20:00 86 Intake/Output Intake/Output: Intake & Output 01/22/21 01/23/21 01/24/21 01/25/21 23:59 23:59 23:59 23:59 Intake Total 492 250 Output Total 200 1100 Balance 292 -850 Meds/Results Medications: Active Medications Generic Name Dose Route Start Last Admin Trade Name Freq PRN Reason Stop Dose Admin Bumetanide 2 mg 01/24/21 09:00 01/25/21 09:03 Bumetanide Inj 2.5 Mg/10 Ml Vial IV PUSH 2 mg BID KATHERINE Administration Dextrose 12.5 gm 01/23/21 23:02 Dextrose 50% 25 Gm/50 Ml Syringe IV PUSH PRN PRN Hypoglycemia Protocol Epoetin Brian-epbx 10,000 units 01/25/21 23:00 Epoetin Brian-Epbx 10,000 Units/Ml Vial IV PUSH 01/25/21 23:01 ONCE ONE Fentanyl Citrate 25 mcg 01/25/21 16:51 Fentanyl Citrate Inj (*Crx) 100 Mcg/2 Ml Vial IV PUSH Q2M PRN Pain Glucagon 1 mg 01/23/21 23:02 Glucagon For Inj 1 Mg Vial IM PRN PRN Hypoglycemia Protocol Glucose 15 gm 01/23/21 23:02 01/24/21 01:05 Glucose Oral Gel 15 Gm Of Glucse In 37.5 Gm Tube PO 15 gm PRN PRN Administration Hypoglycemia Protocol Heparin Sodium (Porcine) 5,000 units 01/24/21 09:0
--- NOTE | 2021-01-25 15:21 | SUR.PREOP ---
C/o feeling short of breath. O2 sat 96% but hgb is low so placed on O2 2L NC.
--- NOTE | 2021-01-25 15:40 | PM.IMPN ---
Progress Note: A&P Assessment and Plan (1) Volume overload: Code(s): E87.70 - Fluid overload, unspecified Status: Acute Assessment and Plan: pt for dialysis today pt started on IV Bumex 2 mg q.12 hours in the interim. (2) Chronic kidney disease, stage 5: Code(s): N18.5 - Chronic kidney disease, stage 5 Status: Chronic Assessment and Plan: Pt to start dialysis awaiting access today (3) Elevated troponin: Code(s): R77.8 - Other specified abnormalities of plasma proteins Status: Acute Assessment and Plan: Chest pain resolved. Likely elevated in the setting of renal failure. 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 Initiate sliding scale insulin, Accu-Cheks, and hypoglycemic protocol. Check hemoglobin A1c. (6) Seizure disorder: Code(s): G40.909 - Epilepsy, unspecified, not intractable, without status epilepticus Status: Acute Assessment and Plan: Keppra level is pending (7) Hypertension: Code(s): I10 - Essential (primary) hypertension Status: Chronic Assessment and Plan: Blood pressures were reviewed and they are reasonably well controlled. Continue antihypertensives and monitor closely. Subjective Date/time seen: 01/25/21 15:40 Interval history: 75-year-old female with chronic kidney disease not yet on dialysis, insulin-dependent type 2 diabetes, hypertension, seizure disorder, and breast cancer who presented to the emergency department earlier today via private vehicle from home for evaluation of shortness of breath. pt here with increasing sob. Pt due to go to dialysis for the first time. Pt having dialysis catheter today under surgery. Review of Systems Review of Systems: All systems reviewed & are unremarkable except as noted in HPI and below Exam Narrative: General: Mildly ill-appearing female sitting up in bed. Respiratory: Bl crackles at bases Cardiovascular: Regular rate and rhythm with S1-S2. Gastrointestinal: Abdomen is soft, nontender, and nondistended with positive bowel sounds. Skin: Warm and dry. Generalized pallor. Extremities: No cyanosis or clubbing. Neurological: Alert. Cranial nerves 2-12 are grossly intact. No gross focal deficits to casual conversation. Psychiatric: Pleasant and cooperative with normal mood and affect. Judgment and insight intact. Objective Data Vital Signs Vital Signs: Vital Signs - 24 hr 01/24/21 16:00 01/24/21 20:00 01/24/21 20:35 Temperature Pulse Rate 93 86 91 Respiratory Rate 20 Blood Pressure Pulse Oximetry 97 01/24/21 22:00 01/25/21 00:00 01/25/21 04:00 Temperature 37.2 C Pulse Rate 91 83 84 Respiratory Rate 20 Blood Pressure 149/63 H Pulse Oximetry 97 01/25/21 05:55 01/25/21 08:00 01/25/21 12:00 Temperature 37.2 C Pulse Rate 84 84 91 Respiratory Rate 18 18 Blood Pressure 134/61 Pulse Oximetry 97 97 01/25/21 14:00 01/25/21 15:15 Temperature 36.7 C 36.6 C Pulse Rate 84 87 Respiratory Rate 16 18 Blood Pressure 138/69 130/90 Pulse Oximetry 95 96 Intake/Output Intake/Output: Intake & Output 01/22/21 01/23/21 01/24/21 01/25/21 23:59 23:59 23:59 23:59 Intake Total 492 250 Output Total 200 1100 Balance 292 -850 Meds/Results Medications: Active Medications Generic Name Dose Route Start Last Admin Trade Name Freq PRN Reason Stop Dose Admin Bumetanide 2 mg 01/24/21 09:00 01/25/21 09:03 Bumetanide Inj 2.5 Mg/10 Ml Vial IV PUSH 2 mg BID KATHERINE Administration Dextrose 12.5 gm 01/23/21 23:02 Dextr
--- NOTE | 2021-01-25 16:51 | WPDANESEPPF ---
Anes - Initial Pre Proc Eval Procedure: Operation Date: 01/25/21 17:00 Proposed Procedures p Insertion Tunnelled Dialysis Catheter - Kristine Justin MD Date/Time: 01/25/21 16:51 Surgeon: Andra Rincon MD Pre Op Diagnosis: Fluid Overload,Anemia Chronic Renal Failure Patient Data Age: 75 Gender: F Height: 1.55 m Weight: 73.6 kg Last Vital Signs Temp 36.6 C 01/25/21 15:15 Pulse 87 01/25/21 15:15 Resp 18 01/25/21 15:15 BP 130/90 01/25/21 15:15 Pulse Ox 96 01/25/21 15:15 Allergies Allergy/AdvReac Type Severity Reaction Status Date / Time No Known Allergies Allergy Unknown Verified 01/23/21 15:55 Home Medications Medication Instructions Recorded Confirmed Type amlodipine 5 mg PO DAILY 01/23/21 01/24/21 History diclofenac sodium [Voltaren] TOPICAL 01/23/21 History ergocalciferol (vitamin D2) 1,250 mcg PO DAILY 01/23/21 01/24/21 History [Vitamin D2] furosemide 80 mg PO DAILY 01/23/21 01/24/21 History insulin glargine [Lantus Solostar 100 unit SUBCUT DAILY 01/23/21 01/24/21 History U-100 Insulin] levetiracetam 250 mg PO DAILY 01/23/21 01/24/21 History oxycodone 5 mg PO Q4H PRN 01/23/21 01/23/21 History paroxetine HCl mg PO 01/23/21 History Laboratory Tests 01/24/21 01/25/21 01/25/21 20:16 02:58 06:12 Sodium 143 mmol/L mmol/L (137-145) Potassium 4.1 mmol/L mmol/L (3.4-5.0) Chloride 108 mmol/L H mmol/L (98-107) Carbon Dioxide 25 mmol/L mmol/L (22-30) Anion Gap 10 mmol/L mmol/L (8-16) BUN 74 mg/dL H mg/dL (7-17) Creatinine 4.30 mg/dL H mg/dL (0.7-1.0) Estim Creat Clear Calc 10 ml/min ml/min Estimated GFR 10 L (59 - ) Glucose 83 mg/dL mg/dL (65-110) POC Capillary Glucose 135 mg/dl H mg/dl 94 mg/dl mg/dl (65-105) (65-105) Calcium 8.3 mg/dL L mg/dL (8.4-10.2) Phosphorus 4.7 mg/dL H mg/dL (2.5-4.5) Iron TIBC % Saturation Ferritin Albumin 3.7 g/dL g/dL (3.5-5.1) Hepatitis A IgM Ab Hep Bs Antigen Hep Bs Antibody Hep B Core Total Ab Hep B Core IgM Ab Hepatitis C Ab Screen 01/25/21 01/25/21 01/25/21 06:12 06:12 06:12 Sodium Potassium Chloride Carbon Dioxide Anion Gap BUN Creatinine Estim Creat Clear Calc Estimated GFR Glucose POC Capillary Glucose Calcium Phosphorus Iron 55 ug/dL ug/dL (37-170) TIBC 243 ug/dL L ug/dL (261-462) % Saturation 23 % % (20-50) Ferritin 286.00 ng/mL H ng/mL (11.1-264) Albumin Hepatitis A IgM Ab Negative (Negative) Hep Bs Antigen Negative (Negative) Hep Bs Antibody Negative Hep B Core Total Ab Pending Hep B Core IgM Ab Negative (Negative) Hepatitis C Ab Screen Negative (Negative) 01/25/21 01/25/21 07:53 11:29 Sodium Potassium Chloride Carbon Dioxide Anion Gap BUN Creatinine Estim Creat Clear Calc Estimated GFR Glucose POC Capillary Glucose 113 mg/dl H mg/dl 88 mg/dl mg/dl (65-105) (65-105) Calcium Phosphorus Iron TIBC % Saturation Ferritin Albumin Hepatitis A IgM Ab Hep Bs Antigen Hep Bs Antibody Hep B Core Total Ab Hep B Core IgM Ab Hepatitis C Ab Screen Patient hx anesthesia problems: none Family hx anesthesia problems: none Results Review: All pre-operative results and documents have been reviewed as part of the pre-operative evaluatio
[2021-01-25] MEDS: SODIUM CHLORIDE 0.9% IV 500 ML 30 ML IV CONT (17:20)
--- NOTE | 2021-01-25 17:51 | PC.NURSE ---
Pt transferred to surgery via bed at 1440.
--- NOTE | 2021-01-25 17:57 | SUR.PREOP ---
PATIENT TRANSPOSTED TO OR AFTER SPEAKING WITH DR. MARTIENZ.
--- NOTE | 2021-01-25 17:59 | WPDHPUPDATE1 ---
History and Physical Update Update Date/Time: 01/25/21 17:59 History and Physical has been reviewed, including an updated exam of the patient. There are NO changes in the patient's condition. Risks, benefits, and alternatives have been discussed and questions answered. Patient agrees to proceed with procedure.
[2021-01-25] MEDS: LIDO 1%/EPINEPHRINE 1:100,000 50 ML VIAL 10 ML INFILTRATE (18:25)
[2021-01-25] MEDS: HEPARIN SODIUM, PORCINE 10,000 UNITS/10 ML VIAL 4000 UNITS IV PUSH (18:29)
--- NOTE | 2021-01-25 18:45 | W.PM.PROC2 ---
Procedure Note - Detailed Date of Procedure 01/25/21 Pre-op Diagnosis acute on chronic renal failure Post-op Diagnosis same Procedure Performed placement of 28 cm tunneled hemodialysis catheter in left internal jugular vein under both ultrasound and fluroscopic guidance Surgeon Kristine Justin MD Anesthesia MAC and local Indications 75 y/o F presenting c acute on chronic renal failure, fluid overload necessitating urgent dialysis Findings 1st stick LIJ Description of Procedure Patient was taken to the operating room and placed in the supine position. After adequate induction of general anesthesia, the patient was prepped and draped in normal sterile fashion. A time-out was then done to verify the patient's identity as well as the procedure being performed. I began by using the SonoSite and locating the left internal jugular vein. Once this was done, I localized the overlying skin. I then made a small incision in the skin. I then gained access into the left internal jugular vein with an 18 gauge needle. At this point, I threaded the guidewire into the left internal jugular vein. Placement of the guidewire was confirmed by both ultrasound and fluoroscopic guidance. I then went ahead and measured the 28 cm tunneled dialysis catheter to our stick site in the left neck. I then localized the tract going from the left chest to the left neck. I then made a small incision in the left chest and tunneled the catheter to the left neck. I then serially dilated the left internal jugular vein under fluoroscopic guidance. Once adequately dilated, I placed the dilating sheath over the guidewire into the left internal jugular vein under fluoroscopic visualization. Once this was noted to be in good position, I removed both the guidewire and dilator, now just leaving the sheath in the vein. I then went ahead and fed the previously tunneled catheter into the sheath. Once the catheter was fed and positioned correctly, I went ahead and peeled the sheath away. Final fluoroscopic view showed the catheter in good position from its insertion point in the left chest to its termination in the atrial caval junction. It was noted there was no kinking of the catheter. I was able to easily draw and flush from both ports of the catheter. I placed 2.2 and 2.3 cc of final heparin flush into each port as marked. The catheter was then sutured into place and the incision in the neck was closed with 4 O Monocryl subcuticular suture. The patient tolerated the procedure well and will be transferred to the ICU in critical condition. Sterile dressing was placed on the catheter. Portable chest x-ray will be done in the ICU. Implants 28 cm tunneled hemodialysis catheter Estimated Blood Loss 10 Drains No Packing No Pathology none sent Complications No immediate complications Condition stable Disposition ICU
[2021-01-25 19:14] LABS: Glucose Point of Care 105 mg/dl (65-105)
--- NOTE | 2021-01-25 20:11 | PC.NURSE ---
Pt back to room from PACU. Left chest dressing is dry & intact.
[2021-01-25 21:58] LABS: Glucose Point of Care 113 mg/dl (65-105)
[2021-01-26] VITALS (23 sets, daily range): BP systolic 123–157; BP diastolic 56–98; PULSE 18–98; RESP 14–22; TEMP 35.8–36.8; O2SAT 97–100
[2021-01-26 01:52] LABS: Glucose Point of Care 103 mg/dl (65-105)
[2021-01-26 06:36] LABS: Hematocrit 22.8 % (37.0-47.0); Hemoglobin 7.3 g/dL (12.0-15.0); Mean Corpuscular Hemoglobin 29.7 pg (26-34); Mean Corpuscular Volume 92.7 fl (80-100); Platelet Count Result 238 k/mm3 (150-375); Red Blood Count 2.46 M/mm3 (4.2-5.4); Red Cell Distribution Width 11.8 % (11.5-14.5); White Blood Count 7.6 K/mm3 (4.5-10.0)
[2021-01-26 06:48] LABS: Albumin Level 3.8 g/dL (3.5-5.1); Anion Gap 10 mmol/L (8-16); Blood Urea Nitrogen 72 mg/dL (7-17); Calcium 8.4 mg/dL (8.4-10.2); Carbon Dioxide 24 mmol/L (22-30); Chloride 104 mmol/L (98-107); Estimated CRCL calculation 11 ml/min; Estimated Glomerular Filt Rate 11; Glucose 146 mg/dL (65-110); Phosphorus 4.8 mg/dL (2.5-4.5); Potassium 4.8 mmol/L (3.4-5.0); Sodium 138 mmol/L (137-145)
[2021-01-26 08:02] LABS: Glucose Point of Care 126 mg/dl (65-105)
--- NOTE | 2021-01-26 11:21 | P.PNNP_ITS ---
Progress Note: A&P Assessment and Plan (1) End stage renal disease: Code(s): N18.6 - End stage renal disease Status: Acute Assessment and Plan: * suspect disease has progressed to the point of requiring dialysis * no critical electrolyte abnormalities but fluid status has become increasing difficult to control with just diuretics * s/p tunneled HD catheter placement (on 01/25/21) * she has a AVF in place but it is still not mature enough to use * HD today * outpatient dialysis ([facility]) being arranged (2) Volume overload: Code(s): E87.70 - Fluid overload, unspecified Status: Acute Assessment and Plan: * as evidenced by history as well as imaging studies on admission * on IV bumex at this time * fluid removal/ultrafiltration with dialysis as well * follow volume status and breathing (3) Anemia: Qualifiers: Anemia type: unspecified type Qualified Code(s): D64.9 - Anemia, unspecified Code(s): D64.9 - Anemia, unspecified Status: Chronic Assessment and Plan: * partly related to CKD but underlying malignancy could be playing a role * Epogen with dialysis * adequate iron stores by anemia studies * PRBC transfusion per protocol * follow trend of H/H (4) Hypertension: Code(s): I10 - Essential (primary) hypertension Status: Chronic Assessment and Plan: * reasonable control at this time * follow trend of hemodynamics (5) Insulin dependent type 2 diabetes mellitus: Code(s): E11.9 - Type 2 diabetes mellitus without complications; Z79.4 - 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 Subjective Date/time seen: 01/26/21 11:21 Tolerating dialysis at the time of my visit (seen on HD at 11:05am); s/p tunneled HD catheter placement yesterday afternoon/evening and tolerated this intervention fairly well; no other acute complaints other than some soreness at HD catheter placement site/area; no events overnight or earlier this AM. Exam Narrative: General: WD/WN female in NAD Heart: normal S1 and S2; no rub Lungs: decreased with a few bibasilar crackles Abdomen: soft, nontender, nondistended, positive bowel sounds Extremities: no cyanosis or clubbing; 2+ edema Skin: warm and intact Objective Data Vital Signs Vital Signs: Vital Signs Temp Pulse Resp BP Pulse Ox 01/26/21 11:15 76 133/66 01/26/21 11:00 78 156/70 H 01/26/21 10:45 77 129/63 01/26/21 10:30 78 149/70 H 01/26/21 10:15 78 145/65 H 01/26/21 10:00 78 123/56 L 01/26/21 09:45 79 129/65 01/26/21 09:30 79 140/63 01/26/21 09:15 81 135/69 01/26/21 09:00 83 143/69 H 01/26/21 08:45 91 157/73 H 01/26/21 08:26 86 139/73 01/26/21 08:15 36.6 C 18 L 18 154/78 H 01/26/21 08:00 85 01/26/21 06:00 36.4 C 84 20 136/57 L 97 01/26/21 04:00 84 01/26/21 00:00 81 01/25/21 20:20 36.6 C 87 20 136/53 L 99 01/25/21 19:50 88 20 136/63 94 01/25/21 19:35 87 18 135/55 L 92 01/25/21 19:20 88 20 130/59 L 98 01/25/21 19:05 87 18 142/64 H 100 01/25/21 18:49 36.6 C 90 16 122/46 L 100
--- NOTE | 2021-01-26 11:21 | PM.PNNEP ---
Progress Note: A&P Assessment and Plan (1) End stage renal disease: Code(s): N18.6 - End stage renal disease Status: Acute Assessment and Plan: suspect disease has progressed to the point of requiring dialysis no critical electrolyte abnormalities but fluid status has become increasing difficult to control with just diuretics s/p tunneled HD catheter placement (on 01/25/21) she has a AVF in place but it is still not mature enough to use HD today outpatient dialysis ([facility]) being arranged (2) Volume overload: Code(s): E87.70 - Fluid overload, unspecified Status: Acute Assessment and Plan: as evidenced by history as well as imaging studies on admission on IV bumex at this time fluid removal/ultrafiltration with dialysis as well follow volume status and breathing (3) Anemia: Qualifiers: Anemia type: unspecified type Qualified Code(s): D64.9 - Anemia, unspecified Code(s): D64.9 - Anemia, unspecified Status: Chronic Assessment and Plan: partly related to CKD but underlying malignancy could be playing a role Epogen with dialysis adequate iron stores by anemia studies PRBC transfusion per protocol follow trend of H/H (4) Hypertension: Code(s): I10 - Essential (primary) hypertension Status: Chronic Assessment and Plan: reasonable control at this time follow trend of hemodynamics (5) Insulin dependent type 2 diabetes mellitus: Code(s): E11.9 - Type 2 diabetes mellitus without complications; 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 Subjective Date/time seen: 01/26/21 11:21 Tolerating dialysis at the time of my visit (seen on HD at 11:05am); s/p tunneled HD catheter placement yesterday afternoon/evening and tolerated this intervention fairly well; no other acute complaints other than some soreness at HD catheter placement site/area; no events overnight or earlier this AM. Exam Narrative: General: WD/WN female in NAD Heart: normal S1 and S2; no rub Lungs: decreased with a few bibasilar crackles Abdomen: soft, nontender, nondistended, positive bowel sounds Extremities: no cyanosis or clubbing; 2+ edema Skin: warm and intact Objective Data Vital Signs Vital Signs: Vital Signs Temp Pulse Resp BP Pulse Ox 01/26/21 11:15 76 133/66 01/26/21 11:00 78 156/70 H 01/26/21 10:45 77 129/63 01/26/21 10:30 78 149/70 H 01/26/21 10:15 78 145/65 H 01/26/21 10:00 78 123/56 L 01/26/21 09:45 79 129/65 01/26/21 09:30 79 140/63 01/26/21 09:15 81 135/69 01/26/21 09:00 83 143/69 H 01/26/21 08:45 91 157/73 H 01/26/21 08:26 86 139/73 01/26/21 08:15 36.6 C 18 L 18 154/78 H 01/26/21 08:00 85 01/26/21 06:00 36.4 C 84 20 136/57 L 97 01/26/21 04:00 84 01/26/21 00:00 81 01/25/21 20:20 36.6 C 87 20 136/53 L 99 01/25/21 19:50 88 20 136/63 94 01/25/21 19:35 87 18 135/55 L 92 01/25/21 19:20 88 20 130/59 L 98 01/25/21 19:05 87 18 142/64 H 100 01/25/21 18:49 36.6 C 90 16 122/46 L 100 01/25/21 16:00 82 01/25/21 15:15 36.6 C 87 18 130/90 96 01/25/21 14:00 36.7 C 84 16 138/69 95 01/25/21 12:00 91 Intake/Output Intake/Output: Intake & Output 01/23/21 01/24/21 01/25/21 01/26/21 23:59 23:59 23:59 23:59 Intake Total 492 970 760 Output Total 200 1800 1100 Balance 290 -463 -029 Meds/Results Medications: Active Medications Generic Name Dose Route Start Last Admin Trade Name Freq PRN Reason Stop Dose Admin Bumetanide 2 mg 01/24/21 09:00 01/25/21 19:17 Bumetanide Inj 2.5 Mg/10 Ml Vial IV PUSH Not Given BID KATHERINE Dextrose 12.5 gm 01/23/21 23:02 Dextrose 50% 25 Gm/50 Ml Syringe IV PUSH PRN PRN Hypoglycemia
[2021-01-26] MEDS: levETIRAcetam 250 MG TABLET PO (11:41)
[2021-01-26] MEDS: BUMETANIDE INJ 2.5 MG/10 ML VIAL 2 MG IV PUSH ×2 (11:42→16:43)
[2021-01-26] MEDS: HEPARIN SODIUM 5,000 UNITS/ML VIAL 5000 UNITS SUB-Q (11:46)
[2021-01-26 12:01] LABS: Glucose Point of Care 158 mg/dl (65-105)
--- NOTE | 2021-01-26 14:26 | PM.IMPN ---
Progress Note: A&P Assessment and Plan (1) End stage renal disease: Code(s): N18.6 - End stage renal disease Status: Acute Assessment and Plan: -nephrology consulted -unable to control fluid status with just diuretics -she has a AVF in place but it is still not mature enough to use -s/p HD catheter placement 01/25/21 -first dialysis tx today -nephrology working on setting up outpatient dialysis -continue monitoring electrolytes and fluid status (2) Volume overload: Code(s): E87.70 - Fluid overload, unspecified Status: Acute Assessment and Plan: -Secondary to worsening renal function. -Dr. Campos consulted -on Bumex -first dialysis tx today (3) Elevated troponin: Code(s): R77.8 - Other specified abnormalities of plasma proteins Status: Acute Assessment and Plan: -Chest pain resolved. -Likely elevated in the setting of renal failure. 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 -Initiate sliding scale insulin, Accu-Cheks, and hypoglycemic protocol. -Hgb A1c 5.9 (6) Seizure disorder: Code(s): G40.909 - Epilepsy, unspecified, not intractable, without status epilepticus Status: Acute Assessment and Plan: -Keppra level is pending (7) Hypertension: Code(s): I10 - Essential (primary) hypertension Status: Chronic Assessment and Plan: -Blood pressures were reviewed and they are reasonably well controlled. -Continue antihypertensives and monitor closely. Subjective Date/time seen: 01/26/21 14:26 Interval history: 75-year-old female with chronic kidney disease not yet on dialysis, insulin-dependent type 2 diabetes, hypertension, seizure disorder, and breast cancer who presented to the emergency department from home for evaluation of shortness of breath. Pt had dialysis catheter placed by general surgery. Today during my exam she was receiving dialysis. She states she is still mildly sob but it has improved quite a bit. She still has a chronic cough. She reports some nausea which she attributes to having been NPO for surgery. No abdominal pain. No cp or LE edema. Review of Systems Review of Systems: General: Denies fevers Eyes: Denies vision changes ENT: Denies nasal congestion or sore throat Respiratory: + cough, + shortness of breath Cardiovascular: Denies chest pain or lower extremity edema Gastrointestinal: Denies abdominal pain, vomiting, or diarrhea, +nausea Genitourinary: Denies dysuria Musculoskeletal: Denies back pain Neurological: Denies headache or motor weakness Integumentary: Denies rash Exam Narrative: General: No acute distress, non toxic appearing Eyes: PERRL, no scleral icterus HEENT: NCAT, external ears normal Respiratory: No respiratory distress, decreased breath sounds bilaterally, bibasilar crackles Cardiovascular: RRR, no murmur Abdominal: Soft, nontender, non distended, no rebound or guarding Musculoskeletal: Moves all 4 extremities, no edema, dialysis catheter in place L upper chest wall Neurological: A/Ox3, speech normal, no facial asymmetry Skin: Warm, dry, no rashes Psychiatric: Normal affect, normal mood Objective Data Vital Signs Vital Signs: Vital Signs - 24 hr 01/25/21 15:15 01/25/21 16:00 01/25/21 18:49 Temperature 97.8 F 97.9 F Pulse Rate 87 82 90 Respiratory Rate 18 16 Blood Pressure 130/90 122/46 L Pulse Oximetry 96 100 01/25/21 19:05 01/25/21 19:20 01/25/21 19:35 Temperature Pulse
[2021-01-26 16:51] LABS: Glucose Point of Care 127 mg/dl (65-105)
[2021-01-26 21:33] LABS: Glucose Point of Care 180 mg/dl (65-105)
[2021-01-27 06:00] VITALS: BP 148/59; PULSE 81; RESP 18; TEMP 35.7; O2SAT 100
[2021-01-27 07:50] LABS: Basophils Percent Auto 0.4 % (0.2-1.2); Eosinophils Absolute Auto 0.6 K/mm3 (0-0.3); Eosinophils Percent Auto 8.9 % (0-4.4); Hematocrit 23.4 % (37.0-47.0); Hemoglobin 7.4 g/dL (12.0-15.0); Immature Granulocyte Absolute 0.03 K/mm3 (0.00-0.031); Immature Granulocyte Percent A 0.4 % (0-0.5); Lymphocytes Absolute Auto 1.54 K/mm3 (0.9-3.2); Lymphocytes Percent Auto 21.7 % (18.3-44.2); Mean Corpuscular HGB Conc 31.6 g/dl (32-36); Mean Corpuscular Hemoglobin 29.4 pg (26-34); Mean Corpuscular Volume 92.9 fl (80-100); Mean Platelet Volume 11.1 fl (7.4-10.4); Monocytes Absolute Auto 0.8 K/mm3 (0.1-0.6); Monocytes Percent Auto 10.7 % (2.6-8.5); Neutrophils Absolute Auto 4.1 K/mm3 (1.3-6.7); Neutrophils Percent Auto 57.9 % (45.5-73.1); Platelet Count Result 224 k/mm3 (150-375); Red Blood Count 2.52 M/mm3 (4.2-5.4); Red Cell Distribution Width 11.7 % (11.5-14.5); White Blood Count 7.1 K/mm3 (4.5-10.0)
[2021-01-27 08:27] LABS: Alanine Aminotransferase 7 U/L (4-35); Albumin Level 3.6 g/dL (3.5-5.1); Alkaline Phosphatase 77 U/L (38-126); Anion Gap 12 mmol/L (8-16); Aspartate Amino Transferase 20 U/L (14-36); Bilirubin,Total 0.3 mg/dL (0.2-1.3); Blood Urea Nitrogen 59 mg/dL (7-17); Calcium 8.6 mg/dL (8.4-10.2); Carbon Dioxide 24 mmol/L (22-30); Chloride 104 mmol/L (98-107); Estimated CRCL calculation 11 ml/min; Estimated Glomerular Filt Rate 12; Glucose 128 mg/dL (65-110); Phosphorus 4.4 mg/dL (2.5-4.5); Potassium 4.2 mmol/L (3.4-5.0); Sodium 140 mmol/L (137-145)
[2021-01-27] MEDS: BUMETANIDE INJ 2.5 MG/10 ML VIAL 2 MG IV PUSH ×2 (09:14→17:30)
[2021-01-27] MEDS: oxyCODONE HCL (*CRX) 5 MG TAB IR PO ×2 (09:14→22:12)
[2021-01-27] MEDS: levETIRAcetam 250 MG TABLET PO (09:14)
[2021-01-27] MEDS: HEPARIN SODIUM 5,000 UNITS/ML VIAL 5000 UNITS SUB-Q ×2 (09:14→22:08)
[2021-01-27 09:26] VITALS: PULSE 70; O2SAT 100
--- NOTE | 2021-01-27 11:27 | P.PNNP_ITS ---
Progress Note: A&P Assessment and Plan (1) End stage renal disease: Code(s): N18.6 - End stage renal disease Status: Acute Assessment and Plan: * suspect disease has progressed to the point of requiring dialysis * no critical electrolyte abnormalities but fluid status has become increasing difficult to control with just diuretics * s/p tunneled HD catheter placement (on 01/25/21) * she has a AVF in place but it is still not mature enough to use * HD yesterday and plan HD tomorrow * outpatient dialysis ([facility]) being arranged (2) Volume overload: Code(s): E87.70 - Fluid overload, unspecified Status: Acute Assessment and Plan: * as evidenced by history as well as imaging studies on admission * continue IV bumex while hospitalized - switch to oral on discharge * fluid removal/ultrafiltration with dialysis as well * follow volume status and breathing (3) Anemia: Qualifiers: Anemia type: unspecified type Qualified Code(s): D64.9 - Anemia, unspecified Code(s): D64.9 - Anemia, unspecified Status: Chronic Assessment and Plan: * partly related to CKD but underlying malignancy could be playing a role * Epogen with dialysis * adequate iron stores by anemia studies * PRBC transfusion per protocol * follow trend of H/H (4) Hypertension: Code(s): I10 - Essential (primary) hypertension Status: Chronic Assessment and Plan: * reasonable control at this time * follow trend of hemodynamics * if remains elevated, consider adding ZORAIDA-I or ARB therapy (5) Insulin dependent type 2 diabetes mellitus: Code(s): E11.9 - Type 2 diabetes mellitus without complications; 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 Subjective Date/time seen: 01/27/21 11:27 Tolerated first dialysis treatment yesterday without any issue or problems; she still reports some shortness of breath but seems better in comparison to admission; no other complaints other than some soreness to her upper and lower extremities; no events overnight or earlier this AM. Exam Narrative: General: WD/WN female in NAD Heart: normal S1 and S2; no rub Lungs: decreased with a few bibasilar crackles Abdomen: soft, nontender, nondistended, positive bowel sounds Extremities: no cyanosis or clubbing; 2+ edema Skin: no rash Objective Data Vital Signs Vital Signs: Vital Signs Temp Pulse Resp BP Pulse Ox 01/27/21 12:00 70 01/27/21 09:26 70 100 01/27/21 06:00 35.7 C L 81 18 148/59 H 100 01/26/21 22:00 36.4 C L 98 22 H 142/98 H 100 01/26/21 16:00 84 Intake/Output Intake/Output: Intake & Output 01/24/21 01/25/21 01/26/21 01/27/21 23:59 23:59 23:59 23:59 Intake Total 664 376 6029 780 Output Total 200 1800 3100 Balance 292 -480 -6400 780 Meds/Results Medications: Active Medications Generic Name Dose Route Start Last Admin Trade Name Freq PRN Reason Stop Dose Admin Acetaminophen 650 mg 01/27/21 12:06 Acetaminophen 325 Mg Tablet PO Q4H PRN Headache or pain 1-3 Acetaminophen/Codeine Phosphate 1 tab 01/27/21 12:06
--- NOTE | 2021-01-27 11:27 | PM.PNNEP ---
Progress Note: A&P Assessment and Plan (1) End stage renal disease: Code(s): N18.6 - End stage renal disease Status: Acute Assessment and Plan: suspect disease has progressed to the point of requiring dialysis no critical electrolyte abnormalities but fluid status has become increasing difficult to control with just diuretics s/p tunneled HD catheter placement (on 01/25/21) she has a AVF in place but it is still not mature enough to use HD yesterday and plan HD tomorrow outpatient dialysis ([facility]) being arranged (2) Volume overload: Code(s): E87.70 - Fluid overload, unspecified Status: Acute Assessment and Plan: as evidenced by history as well as imaging studies on admission continue IV bumex while hospitalized - switch to oral on discharge fluid removal/ultrafiltration with dialysis as well follow volume status and breathing (3) Anemia: Qualifiers: Anemia type: unspecified type Qualified Code(s): D64.9 - Anemia, unspecified Code(s): D64.9 - Anemia, unspecified Status: Chronic Assessment and Plan: partly related to CKD but underlying malignancy could be playing a role Epogen with dialysis adequate iron stores by anemia studies PRBC transfusion per protocol follow trend of H/H (4) Hypertension: Code(s): I10 - Essential (primary) hypertension Status: Chronic Assessment and Plan: reasonable control at this time follow trend of hemodynamics if remains elevated, consider adding ZORAIDA-I or ARB therapy (5) Insulin dependent type 2 diabetes mellitus: Code(s): E11.9 - Type 2 diabetes mellitus without complications; 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 Subjective Date/time seen: 01/27/21 11:27 Tolerated first dialysis treatment yesterday without any issue or problems; she still reports some shortness of breath but seems better in comparison to admission; no other complaints other than some soreness to her upper and lower extremities; no events overnight or earlier this AM. Exam Narrative: General: WD/WN female in NAD Heart: normal S1 and S2; no rub Lungs: decreased with a few bibasilar crackles Abdomen: soft, nontender, nondistended, positive bowel sounds Extremities: no cyanosis or clubbing; 2+ edema Skin: no rash Objective Data Vital Signs Vital Signs: Vital Signs Temp Pulse Resp BP Pulse Ox 01/27/21 12:00 70 01/27/21 09:26 70 100 01/27/21 06:00 35.7 C L 81 18 148/59 H 100 01/26/21 22:00 36.4 C L 98 22 H 142/98 H 100 01/26/21 16:00 84 Intake/Output Intake/Output: Intake & Output 01/24/21 01/25/21 01/26/21 01/27/21 23:59 23:59 23:59 23:59 Intake Total 796 630 2275 780 Output Total 200 1800 3100 Balance 190 -850 1310 780 Meds/Results Medications: Active Medications Generic Name Dose Route Start Last Admin Trade Name Freq PRN Reason Stop Dose Admin Acetaminophen 650 mg 01/27/21 12:06 Acetaminophen 325 Mg Tablet PO Q4H PRN Headache or pain 1-3 Acetaminophen/Codeine Phosphate 1 tab 01/27/21 12:06 Acetaminophen/Codeine (*Crx) 300/30 Mg Tablet PO Q4H PRN Pain Rated 4-6 Hydrocodone Bitart/Acetaminophen 1 tab 01/27/21 12:06 Hydrocodone/Acetaminophen (*Crx) 5-325 Mg Tablet PO Q4H PRN Pain Rated 7-10 Bumetanide 2 mg 01/24/21 09:00 01/27/21 09:14 Bumetanide Inj 2.5 Mg/10 Ml Vial IV PUSH 2 mg BID KATHERINE Administration Dextrose 12.5 gm 01/23/21 23:02 Dextrose 50% 25 Gm/50 Ml Syringe IV PUSH PRN PRN Hypoglycemia Protocol Glucagon 1 mg 01/23/21 23:02 Glucagon For Inj 1 Mg Vial IM PRN PRN Hypoglycemia Protocol Glucose 15 gm 01/23/21 23:02 01/24/21 01:05 Glucose Oral Gel 15 Gm Of Glucse In 37.5 Gm Tube PO 15 gm PRN RI
--- NOTE | 2021-01-27 11:54 | PM.IMPN ---
Progress Note: A&P Assessment and Plan (1) End stage renal disease: Code(s): N18.6 - End stage renal disease Status: Acute Assessment and Plan: -nephrology consulted -no longer able to control fluid status with just diuretics -she has a AVF in place but it is still not mature enough to use -s/p HD catheter placement 01/25/21 -first dialysis tx yesterday -nephrology working on setting up outpatient dialysis -continue monitoring electrolytes and fluid status (2) Volume overload: Code(s): E87.70 - Fluid overload, unspecified Status: Acute Assessment and Plan: -Secondary to worsening renal function. -Dr. Campos consulted -on Bumex -first dialysis tx yesterday (3) Elevated troponin: Code(s): R77.8 - Other specified abnormalities of plasma proteins Status: Acute Assessment and Plan: -Chest pain resolved. -Likely elevated in the setting of renal failure. (4) Chronic anemia: Code(s): D64.9 - Anemia, unspecified Status: Acute Assessment and Plan: -Continue to monitor hgb is 7.4 -Nephrology has started Epo -adequate iron stores by anemia studies (5) Insulin dependent type 2 diabetes mellitus: Code(s): E11.9 - Type 2 diabetes mellitus without complications; Z79.4 - group home (current) use of insulin Status: Chronic Assessment and Plan: -Continue basal insulin. -Initiate sliding scale insulin, Accu-Cheks, and hypoglycemic protocol. -Hgb A1c 5.9 (6) Seizure disorder: Code(s): G40.909 - Epilepsy, unspecified, not intractable, without status epilepticus Status: Acute Assessment and Plan: -Keppra level is pending (7) Hypertension: Code(s): I10 - Essential (primary) hypertension Status: Chronic Assessment and Plan: -Blood pressures were reviewed and they are reasonably well controlled. -Continue antihypertensives and monitor closely. -suspect dialysis will also help control her HTN Subjective Date/time seen: 01/27/21 11:54 Interval history: 75-year-old female with chronic kidney disease not yet on dialysis, insulin-dependent type 2 diabetes, hypertension, seizure disorder, and breast cancer who presented to the emergency department from home for evaluation of shortness of breath. Pt had dialysis catheter placed by general surgery. Today she feels okay. She states she is still mildly sob but it has improved quite a bit. She still has a chronic cough. No abdominal pain. No cp or LE edema. Does state that her arms and legs are sore today. Review of Systems Review of Systems: General: Denies fevers Eyes: Denies vision changes ENT: Denies nasal congestion or sore throat Respiratory: + cough, + shortness of breath Cardiovascular: Denies chest pain or lower extremity edema Gastrointestinal: Denies abdominal pain, vomiting, or diarrhea Genitourinary: Denies dysuria Musculoskeletal: +pain in arms and legs Neurological: + headache, denies motor weakness Integumentary: Denies rash Exam Narrative: General: No acute distress, non toxic appearing, elderly Eyes: PERRL, no scleral icterus HEENT: NCAT, external ears normal Respiratory: No respiratory distress, decreased breath sounds bilaterally, bibasilar crackles Cardiovascular: RRR, no murmur Abdominal: Soft, nontender, non distended, no rebound or guarding Musculoskeletal: Moves all 4 extremities, no edema, dialysis catheter in place L upper chest wall Neurological: A/Ox3, speech normal, no facial asymmetry Skin: Warm, dry Psychiatric: Normal affect, normal mood Objective Data Vital Signs Vital Signs: Vital Signs - 24 hr 01/26/21 12:00 01/26/21 14:53 01/26/21 16:00 Temperature 98.3 F Pulse Rate 80 75 84 Respiratory Rate 14 Blood Pressure 141/70 H Pulse Oximetry 99 01/26/21 22:00 01/27/21 06:00 01/27/21 09:26 Temperature 97.5 F L 96.3 F L Pulse Ra
[2021-01-27 12:00] VITALS: PULSE 70
[2021-01-27 12:19] LABS: Glucose Point of Care 195 mg/dl (65-105)
[2021-01-27 12:22] LABS: Glucose Point of Care 106 mg/dl (65-105)
[2021-01-27 14:44] VITALS: BP 111/75; PULSE 75; RESP 16; TEMP 36.1; O2SAT 98
[2021-01-27 16:37] LABS: Glucose Point of Care 151 mg/dl (65-105)
[2021-01-27 20:00] VITALS: O2SAT 99
[2021-01-27 22:00] VITALS: BP 140/54; PULSE 78; RESP 18; TEMP 36.4; O2SAT 99
[2021-01-28] VITALS (9 sets, daily range): BP systolic 109–145; BP diastolic 46–69; PULSE 68–79; RESP 14–20; TEMP 36.2–37.1; O2SAT 98–99
[2021-01-28 06:19] LABS: Basophils Percent Auto 0.4 % (0.2-1.2); Eosinophils Absolute Auto 0.7 K/mm3 (0-0.3); Eosinophils Percent Auto 9.5 % (0-4.4); Hematocrit 23.3 % (37.0-47.0); Hemoglobin 7.4 g/dL (12.0-15.0); Immature Granulocyte Absolute 0.02 K/mm3 (0.00-0.031); Immature Granulocyte Percent A 0.3 % (0-0.5); Lymphocytes Absolute Auto 1.62 K/mm3 (0.9-3.2); Lymphocytes Percent Auto 23.3 % (18.3-44.2); Mean Corpuscular HGB Conc 31.8 g/dl (32-36); Mean Corpuscular Volume 91.4 fl (80-100); Mean Platelet Volume 11.3 fl (7.4-10.4); Monocytes Absolute Auto 0.8 K/mm3 (0.1-0.6); Monocytes Percent Auto 11.5 % (2.6-8.5); Neutrophils Absolute Auto 3.8 K/mm3 (1.3-6.7); Platelet Count Result 230 k/mm3 (150-375); Red Blood Count 2.55 M/mm3 (4.2-5.4); Red Cell Distribution Width 11.4 % (11.5-14.5)
[2021-01-28 06:20] LABS: Alanine Aminotransferase 11 U/L (4-35); Albumin Level 3.4 g/dL (3.5-5.1); Alkaline Phosphatase 84 U/L (38-126); Anion Gap 7 mmol/L (8-16); Aspartate Amino Transferase 37 U/L (14-36); Bilirubin,Total 0.3 mg/dL (0.2-1.3); Blood Urea Nitrogen 62 mg/dL (7-17); Calcium 8.5 mg/dL (8.4-10.2); Carbon Dioxide 27 mmol/L (22-30); Chloride 102 mmol/L (98-107); Estimated CRCL calculation 10 ml/min; Estimated Glomerular Filt Rate 11; Glucose 120 mg/dL (65-110); Phosphorus 5.1 mg/dL (2.5-4.5); Potassium 4.2 mmol/L (3.4-5.0); Sodium 136 mmol/L (137-145)
[2021-01-28 08:15] LABS: Glucose Point of Care 114 mg/dl (65-105)
[2021-01-28 08:38] LABS: Levetiracetam Keppra 14.8 mcg/mL (12.0-46.0)
[2021-01-28] MEDS: levETIRAcetam 250 MG TABLET PO (09:39)
[2021-01-28] MEDS: HEPARIN SODIUM 5,000 UNITS/ML VIAL 5000 UNITS SUB-Q ×2 (09:40→20:49)
[2021-01-28] MEDS: BUMETANIDE INJ 2.5 MG/10 ML VIAL 2 MG IV PUSH (09:42)
--- NOTE | 2021-01-28 10:26 | PC.NURSE ---
to dialysis per bed
--- NOTE | 2021-01-28 11:11 | P.PNNP_ITS ---
Progress Note: A&P Assessment and Plan (1) End stage renal disease: Code(s): N18.6 - End stage renal disease Status: Acute Assessment and Plan: * suspect disease has progressed to the point of requiring dialysis * volume status looks improved. * Potassium and bicarbonate are doing well. * Getting dialysis arrangements in the [place] [facility] (2) Volume overload: Code(s): E87.70 - Fluid overload, unspecified Status: Acute Assessment and Plan: * as evidenced by history as well as imaging studies on admission * improved (3) Anemia: Qualifiers: Anemia type: unspecified type Qualified Code(s): D64.9 - Anemia, unspecified Code(s): D64.9 - Anemia, unspecified Status: Chronic Assessment and Plan: * partly related to CKD but underlying malignancy could be playing a role * Epogen with dialysis * adequate iron stores by anemia studies * hemoglobin stable in the low 7s (4) Hypertension: Code(s): I10 - Essential (primary) hypertension Status: Chronic Assessment and Plan: * reasonable control at this time * follow trend of hemodynamics * if remains elevated, consider adding ZORAIDA-I or ARB therapy (5) Insulin dependent type 2 diabetes mellitus: Code(s): E11.9 - Type 2 diabetes mellitus without complications; Z79.4 - [facility] (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 Subjective Date/time seen: 01/28/21 11:11 Interval history: Patient is feeling better today. She is less short of breath. Swelling is gone. She is on dialysis and tolerating well. Blood pressure is doing well so far. She was seen that 11:05 a.m. Exam Narrative: General: WD/WN female in NAD Heart: normal S1 and S2; no rub or rash Lungs: decreased with a few bibasilar crackles Abdomen: soft, nontender, nondistended, positive bowel sounds Extremities: trace edema Skin: no rash or subcu nodules Objective Data Vital Signs Vital Signs: Vital Signs - 24 hr 01/27/21 12:00 01/27/21 14:44 01/27/21 20:00 Temperature 36.1 C L Pulse Rate 70 75 Respiratory Rate 16 Blood Pressure 111/75 Pulse Oximetry 98 99 01/27/21 22:00 01/28/21 06:00 01/28/21 08:00 Temperature 36.4 C L 36.2 C L Pulse Rate 78 78 Respiratory Rate 18 18 Blood Pressure 140/54 L 117/46 L Pulse Oximetry 99 98 98 Intake/Output Intake/Output: Intake & Output 01/25/21 01/26/21 01/27/21 01/28/21 23:59 23:59 23:59 23:59 Intake Total 970 1790 780 240 Output Total 1800 3100 500 Balance -830 -1310 280 240 Meds/Results Medications: Active Medications Generic Name Dose Route Start Last Admin Trade Name Freq PRN Reason Stop Dose Admin Acetaminophen 650 mg 01/27/21 12:06 Acetaminophen 325 Mg Tablet PO Q4H PRN Headache or pain 1-3 Acetaminophen/Codeine Phosphate 1 tab 01/27/21 12:06 Acetaminophen/Codeine (*Crx) 300/30 Mg Tablet PO Q4H PRN Pain Rated 4-6 Hydrocodone Bitart/Acetaminophen 1 tab 01/27/21 12:06 Hydrocodone/Acetaminophen (*Crx) 5-32
--- NOTE | 2021-01-28 11:11 | PM.PNNEP ---
Progress Note: A&P Assessment and Plan (1) End stage renal disease: Code(s): N18.6 - End stage renal disease Status: Acute Assessment and Plan: suspect disease has progressed to the point of requiring dialysis volume status looks improved. Potassium and bicarbonate are doing well. Getting dialysis arrangements in the [facility] (2) Volume overload: Code(s): E87.70 - Fluid overload, unspecified Status: Acute Assessment and Plan: as evidenced by history as well as imaging studies on admission improved (3) Anemia: Qualifiers: Anemia type: unspecified type Qualified Code(s): D64.9 - Anemia, unspecified Code(s): D64.9 - Anemia, unspecified Status: Chronic Assessment and Plan: partly related to CKD but underlying malignancy could be playing a role Epogen with dialysis adequate iron stores by anemia studies hemoglobin stable in the low 7s (4) Hypertension: Code(s): I10 - Essential (primary) hypertension Status: Chronic Assessment and Plan: reasonable control at this time follow trend of hemodynamics if remains elevated, consider adding ZORAIDA-I or ARB therapy (5) Insulin dependent type 2 diabetes mellitus: Code(s): E11.9 - Type 2 diabetes mellitus without complications; Z79.4 - jail (current) use of insulin Status: Chronic Assessment and Plan: follow accuchecks on SSI Will continue to follow. Subjective Date/time seen: 01/28/21 11:11 Interval history: Patient is feeling better today. She is less short of breath. Swelling is gone. She is on dialysis and tolerating well. Blood pressure is doing well so far. She was seen that 11:05 a.m. Exam Narrative: General: WD/WN female in NAD Heart: normal S1 and S2; no rub or rash Lungs: decreased with a few bibasilar crackles Abdomen: soft, nontender, nondistended, positive bowel sounds Extremities: trace edema Skin: no rash or subcu nodules Objective Data Vital Signs Vital Signs: Vital Signs - 24 hr 01/27/21 12:00 01/27/21 14:44 01/27/21 20:00 Temperature 36.1 C L Pulse Rate 70 75 Respiratory Rate 16 Blood Pressure 111/75 Pulse Oximetry 98 99 01/27/21 22:00 01/28/21 06:00 01/28/21 08:00 Temperature 36.4 C L 36.2 C L Pulse Rate 78 78 Respiratory Rate 18 18 Blood Pressure 140/54 L 117/46 L Pulse Oximetry 99 98 98 Intake/Output Intake/Output: Intake & Output 01/25/21 01/26/21 01/27/21 01/28/21 23:59 23:59 23:59 23:59 Intake Total 970 1790 780 240 Output Total 1800 3100 500 Balance -830 -1310 280 240 Meds/Results Medications: Active Medications Generic Name Dose Route Start Last Admin Trade Name Freq PRN Reason Stop Dose Admin Acetaminophen 650 mg 01/27/21 12:06 Acetaminophen 325 Mg Tablet PO Q4H PRN Headache or pain 1-3 Acetaminophen/Codeine Phosphate 1 tab 01/27/21 12:06 Acetaminophen/Codeine (*Crx) 300/30 Mg Tablet PO Q4H PRN Pain Rated 4-6 Hydrocodone Bitart/Acetaminophen 1 tab 01/27/21 12:06 Hydrocodone/Acetaminophen (*Crx) 5-325 Mg Tablet PO Q4H PRN Pain Rated 7-10 Bumetanide 2 mg 01/24/21 09:00 01/28/21 09:42 Bumetanide Inj 2.5 Mg/10 Ml Vial IV PUSH 2 mg BID KATHERINE Administration Dextrose 12.5 gm 01/23/21 23:02 Dextrose 50% 25 Gm/50 Ml Syringe IV PUSH PRN PRN Hypoglycemia Protocol Epoetin Brian-epbx 10,000 units 01/28/21 23:17 Epoetin Brian-Epbx 10,000 Units/Ml Vial IV PUSH 01/28/21 23:18 ONCE ONE Glucagon 1 mg 01/23/21 23:02 Glucagon For Inj 1 Mg Vial IM PRN PRN Hypoglycemia Protocol Glucose 15 gm 01/23/21 23:02 01/24/21 01:05 Glucose Oral Gel 15 Gm Of Glucse In 37.5 Gm Tube PO 15 gm PRN PRN Administration Hypoglycemia Protocol Heparin Sodium (Porcine) 5,000 units 01/24/21 09:00 01/28/21 09:40 Heparin Sodiu
--- NOTE | 2021-01-28 13:50 | PC.NURSE ---
patient finished in dialysis. returned to room per bed
[2021-01-28 13:55] LABS: Glucose Point of Care 127 mg/dl (65-105)
[2021-01-28] MEDS: ONDANSETRON INJ 4 MG/2 ML VIAL (14:00)
--- NOTE | 2021-01-28 14:34 | PM.IMPN ---
Progress Note: A&P Assessment and Plan (1) End stage renal disease: Code(s): N18.6 - End stage renal disease Status: Acute Assessment and Plan: -nephrology consulted -no longer able to control fluid status with just diuretics -she has a AVF in place but it is still not mature enough to use -s/p HD catheter placement 01/25/21 -first dialysis tx 01/26/21, due for another today -nephrology working on setting up outpatient dialysis -continue monitoring electrolytes and fluid status (2) Volume overload: Code(s): E87.70 - Fluid overload, unspecified Status: Acute Assessment and Plan: -Secondary to worsening renal function. -See above (3) Elevated troponin: Code(s): R77.8 - Other specified abnormalities of plasma proteins Status: Acute Assessment and Plan: -Chest pain resolved. -Likely elevated in the setting of renal failure. (4) Chronic anemia: Code(s): D64.9 - Anemia, unspecified Status: Acute Assessment and Plan: -Continue to monitor hgb is 7.0 -Nephrology has started Epo -adequate iron stores by anemia studies (5) Insulin dependent type 2 diabetes mellitus: Code(s): E11.9 - Type 2 diabetes mellitus without complications; Z79.4 - assisted (current) use of insulin Status: Chronic Assessment and Plan: -Continue basal insulin. -Initiate sliding scale insulin, Accu-Cheks, and hypoglycemic protocol. -Hgb A1c 5.9 (6) Seizure disorder: Code(s): G40.909 - Epilepsy, unspecified, not intractable, without status epilepticus Status: Acute Assessment and Plan: -Keppra level is pending (7) Hypertension: Code(s): I10 - Essential (primary) hypertension Status: Chronic Assessment and Plan: -Blood pressures were reviewed and they are reasonably well controlled. -Continue antihypertensives and monitor closely. -suspect dialysis will also help control her HTN Subjective Date/time seen: 01/28/21 9:00 Interval history: 75-year-old female with chronic kidney disease not yet on dialysis, insulin-dependent type 2 diabetes, hypertension, seizure disorder, and breast cancer who presented to the emergency department from home for evaluation of shortness of breath. Pt had dialysis catheter placed by general surgery. Pt is feeling better today. Still some sob but overall better. Still feeling achey all over mostly her arms and legs. No chest pain. She is going for dialysis later today. Review of Systems Review of Systems: General: Denies fevers Eyes: Denies vision changes ENT: Denies nasal congestion or sore throat Respiratory: + cough, + shortness of breath Cardiovascular: Denies chest pain or lower extremity edema Gastrointestinal: Denies abdominal pain, vomiting, or diarrhea Genitourinary: Denies dysuria Musculoskeletal: +pain in arms and legs Neurological: denies headache, denies motor weakness Integumentary: Denies rash Exam Narrative: General: No acute distress, non toxic appearing, elderly Eyes: PERRL, no scleral icterus HEENT: NCAT, external ears normal Respiratory: No respiratory distress, decreased breath sounds bilaterally, bibasilar crackles Cardiovascular: RRR, no murmur Abdominal: Soft, nontender, non distended, no rebound or guarding Musculoskeletal: Moves all 4 extremities, no edema, dialysis catheter in place L upper chest wall Neurological: A/Ox3, speech normal, no facial asymmetry Skin: Warm, dry Psychiatric: Normal affect, normal mood Objective Data Vital Signs Vital Signs: Vital Signs - 24 hr 01/27/21 14:44 01/27/21 20:00 01/27/21 22:00 Temperature 96.9 F L 97.5 F L Pulse Rate 75 78 Respiratory Rate 16 18 Blood Pressure 111/75 140/54 L Pulse Oximetry 98 99 99 01/28/21 06:00 01/28/21 08:00 Temperature 97.1 F L Pulse Rate 78 Respiratory Rate 18 Blood Pressure 117/46 L Pulse Oximetr
[2021-01-28 16:40] LABS: Glucose Point of Care 161 mg/dl (65-105)
[2021-01-28] MEDS: ONDANSETRON INJ 4 MG/2 ML VIAL IV PUSH (21:09)
[2021-01-28 22:43] LABS: Glucose Point of Care 193 mg/dl (65-105)
[2021-01-29 06:00] VITALS: BP 125/58; PULSE 75; RESP 16; TEMP 36.2; O2SAT 99
[2021-01-29 06:17] LABS: Basophils Percent Auto 0.3 % (0.2-1.2); Eosinophils Absolute Auto 0.5 K/mm3 (0-0.3); Eosinophils Percent Auto 7.7 % (0-4.4); Hematocrit 22.8 % (37.0-47.0); Hemoglobin 7.3 g/dL (12.0-15.0); Immature Granulocyte Absolute 0.03 K/mm3 (0.00-0.031); Immature Granulocyte Percent A 0.4 % (0-0.5); Lymphocytes Absolute Auto 1.85 K/mm3 (0.9-3.2); Mean Corpuscular Hemoglobin 29.4 pg (26-34); Mean Corpuscular Volume 91.9 fl (80-100); Mean Platelet Volume 11.3 fl (7.4-10.4); Monocytes Absolute Auto 0.7 K/mm3 (0.1-0.6); Monocytes Percent Auto 9.6 % (2.6-8.5); Neutrophils Absolute Auto 3.8 K/mm3 (1.3-6.7); Platelet Count Result 203 k/mm3 (150-375); Red Blood Count 2.48 M/mm3 (4.2-5.4); Red Cell Distribution Width 11.4 % (11.5-14.5); White Blood Count 6.8 K/mm3 (4.5-10.0)
[2021-01-29 06:55] LABS: Alanine Aminotransferase 10 U/L (4-35); Albumin Level 3.4 g/dL (3.5-5.1); Alkaline Phosphatase 85 U/L (38-126); Anion Gap 7 mmol/L (8-16); Aspartate Amino Transferase 26 U/L (14-36); Bilirubin,Total 0.4 mg/dL (0.2-1.3); Blood Urea Nitrogen 36 mg/dL (7-17); Carbon Dioxide 30 mmol/L (22-30); Chloride 98 mmol/L (98-107); Estimated CRCL calculation 13 ml/min; Estimated Glomerular Filt Rate 14; Glucose 123 mg/dL (65-110); Sodium 135 mmol/L (137-145)
--- NOTE | 2021-01-29 07:21 | P.PNNP_ITS ---
Progress Note: A&P Assessment and Plan (1) End stage renal disease: Code(s): N18.6 - End stage renal disease Status: Acute Assessment and Plan: * Now end-stage renal disease. * volume status looks improved. * Potassium and bicarbonate are doing well. * She is making less urine than she did. We can switch to p.o. Lasix. * HD due tomorrow. * Because of the cramping will cut back on the amount of dialysis tomorrow but eventually we have to get to an adequate amount. (2) Volume overload: Code(s): E87.70 - Fluid overload, unspecified Status: Acute Assessment and Plan: * Improved. (3) Anemia: Qualifiers: Anemia type: unspecified type Qualified Code(s): D64.9 - Anemia, unspecified Code(s): D64.9 - Anemia, unspecified Status: Chronic Assessment and Plan: * partly related to CKD but underlying malignancy could be playing a role * Epogen with dialysis * adequate iron stores by anemia studies * hemoglobin stable in the low 7s * It will take a few weeks for the hemoglobin to wonder up to goal (4) Hypertension: Code(s): I10 - Essential (primary) hypertension Status: Chronic Assessment and Plan: * Blood pressure is well controlled. * Off all blood pressure medicines. (5) Insulin dependent type 2 diabetes mellitus: Code(s): E11.9 - Type 2 diabetes mellitus without complications; Z79.4 - half-way (current) use of insulin Status: Chronic Assessment and Plan: * On Accu-Cheks and sliding-scale insulin. Subjective Date/time seen: 01/29/21 07:21 Interval history: Diamond finished her dialysis yesterday. Soon afterwards she had cramping in her back and also in her arms and legs. She says she felt like that before she started dialysis and now she feels like that again.\ She ate okay yesterday. She did not sleep very well. Exam Narrative: General: WD/WN female in NAD Heart: normal S1 and S2; no rub Lungs: decreased with a few bibasilar crackles Abdomen: soft, nontender, nondistended, positive bowel sounds Extremities: trace edema Skin: no rash Objective Data Vital Signs Vital Signs: Vital Signs - 24 hr 01/28/21 08:00 01/28/21 10:30 01/28/21 10:42 Temperature 36.5 C Pulse Rate 75 78 Respiratory Rate 20 Blood Pressure 141/66 H 145/69 H Pulse Oximetry 98 01/28/21 11:00 01/28/21 13:45 01/28/21 14:00 Temperature 36.6 C 36.7 C Pulse Rate 73 68 75 Respiratory Rate 20 14 Blood Pressure 135/63 111/60 114/50 L Pulse Oximetry 99 01/28/21 16:15 01/28/21 21:26 01/29/21 06:00 Temperature 37.1 C 36.2 C L Pulse Rate 76 79 75 Respiratory Rate 20 16 16 Blood Pressure 109/53 L 119/52 L 125/58 L Pulse Oximetry 98 98 99 Intake/Output Intake/Output: Intake & Output 01/26/21 01/27/21 01/28/21 01/29/21 23:59 23:59 23:59 23:59 Intake Total 7795 600 1810 240 Output Total 3100 500 1530 300 Balance -1310 280 -360 -60 Meds/Results Medications: Active Medications Generic Name Dose Route Start Last Admin Trade Name Liborio PRN Reason Stop Dose Admin Acetaminophen 650 mg 01/27/21 12:06
--- NOTE | 2021-01-29 07:21 | PM.PNNEP ---
Progress Note: A&P Assessment and Plan (1) End stage renal disease: Code(s): N18.6 - End stage renal disease Status: Acute Assessment and Plan: Now end-stage renal disease. volume status looks improved. Potassium and bicarbonate are doing well. She is making less urine than she did. We can switch to p.o. Lasix. HD due tomorrow. Because of the cramping will cut back on the amount of dialysis tomorrow but eventually we have to get to an adequate amount. (2) Volume overload: Code(s): E87.70 - Fluid overload, unspecified Status: Acute Assessment and Plan: Improved. (3) Anemia: Qualifiers: Anemia type: unspecified type Qualified Code(s): D64.9 - Anemia, unspecified Code(s): D64.9 - Anemia, unspecified Status: Chronic Assessment and Plan: partly related to CKD but underlying malignancy could be playing a role Epogen with dialysis adequate iron stores by anemia studies hemoglobin stable in the low 7s It will take a few weeks for the hemoglobin to wonder up to goal (4) Hypertension: Code(s): I10 - Essential (primary) hypertension Status: Chronic Assessment and Plan: Blood pressure is well controlled. Off all blood pressure medicines. (5) Insulin dependent type 2 diabetes mellitus: Code(s): E11.9 - Type 2 diabetes mellitus without complications; Z79.4 - [facility] (current) use of insulin Status: Chronic Assessment and Plan: On Accu-Cheks and sliding-scale insulin. Subjective Date/time seen: 01/29/21 07:21 Interval history: Diamond finished her dialysis yesterday. Soon afterwards she had cramping in her back and also in her arms and legs. She says she felt like that before she started dialysis and now she feels like that again.\ She ate okay yesterday. She did not sleep very well. Exam Narrative: General: WD/WN female in NAD Heart: normal S1 and S2; no rub Lungs: decreased with a few bibasilar crackles Abdomen: soft, nontender, nondistended, positive bowel sounds Extremities: trace edema Skin: no rash Objective Data Vital Signs Vital Signs: Vital Signs - 24 hr 01/28/21 08:00 01/28/21 10:30 01/28/21 10:42 Temperature 36.5 C Pulse Rate 75 78 Respiratory Rate 20 Blood Pressure 141/66 H 145/69 H Pulse Oximetry 98 01/28/21 11:00 01/28/21 13:45 01/28/21 14:00 Temperature 36.6 C 36.7 C Pulse Rate 73 68 75 Respiratory Rate 20 14 Blood Pressure 135/63 111/60 114/50 L Pulse Oximetry 99 01/28/21 16:15 01/28/21 21:26 01/29/21 06:00 Temperature 37.1 C 36.2 C L Pulse Rate 76 79 75 Respiratory Rate 20 16 16 Blood Pressure 109/53 L 119/52 L 125/58 L Pulse Oximetry 98 98 99 Intake/Output Intake/Output: Intake & Output 01/26/21 01/27/21 01/28/21 01/29/21 23:59 23:59 23:59 23:59 Intake Total 3504 877 3723 240 Output Total 3100 500 1530 300 Balance -1310 280 -360 -60 Meds/Results Medications: Active Medications Generic Name Dose Route Start Last Admin Trade Name Freq PRN Reason Stop Dose Admin Acetaminophen 650 mg 01/27/21 12:06 Acetaminophen 325 Mg Tablet PO Q4H PRN Headache or pain 1-3 Acetaminophen/Codeine Phosphate 1 tab 01/27/21 12:06 Acetaminophen/Codeine (*Crx) 300/30 Mg Tablet PO Q4H PRN Pain Rated 4-6 Hydrocodone Bitart/Acetaminophen 1 tab 01/27/21 12:06 Hydrocodone/Acetaminophen (*Crx) 5-325 Mg Tablet PO Q4H PRN Pain Rated 7-10 Bumetanide 2 mg 01/24/21 09:00 01/28/21 17:09 Bumetanide Inj 2.5 Mg/10 Ml Vial IV PUSH Not Given BID KATHERINE Dextrose 12.5 gm 01/23/21 23:02 Dextrose 50% 25 Gm/50 Ml Syringe IV PUSH PRN PRN Hypoglycemia Protocol Glucagon 1 mg 01/23/21 23:02 Glucagon For Inj 1 Mg Vial IM PRN PRN Hypoglycemia Protocol Glucose 15 gm 01/23/21 23:02 01/24/21 01:05 Glucose Oral Gel 15 Gm Of Glucse In 37.5 Gm Tube
[2021-01-29 08:00] VITALS: O2SAT 99
[2021-01-29 08:37] LABS: Glucose Point of Care 98 mg/dl (65-105)
[2021-01-29] MEDS: FUROSEMIDE 80 MG TABLET PO ×2 (09:46→16:49)
[2021-01-29] MEDS: HEPARIN SODIUM 5,000 UNITS/ML VIAL 5000 UNITS SUB-Q ×2 (09:47→20:24)
[2021-01-29] MEDS: levETIRAcetam 250 MG TABLET PO (09:47)
[2021-01-29 11:53] LABS: Glucose Point of Care 180 mg/dl (65-105)
[2021-01-29] MEDS: oxyCODONE HCL (*CRX) 5 MG TAB IR PO (12:48)
[2021-01-29 14:00] VITALS: BP 120/51; PULSE 81; RESP 20; TEMP 36.4; O2SAT 99
--- NOTE | 2021-01-29 15:36 | PM.IMPN ---
Progress Note: A&P Assessment and Plan (1) End stage renal disease: Code(s): N18.6 - End stage renal disease Status: Acute Assessment and Plan: This is a very pleasant 75-year-old female with chronic kidney disease not yet on dialysis, insulin-dependent type 2 diabetes, hypertension, seizure disorder, and breast cancer who presented to the emergency department from home for evaluation of shortness of breath. A right upper extremity AV fistula was created several months ago in anticipation for dialysis and she was hoping to hold off until after the holidays however she has had increasing edema, shortness of breath, and orthopnea. Her shortness of breath is so severe that she is now getting winded when getting dressed. Additionally she reports a 22 lb weight gain in the last 6 months. Initial vitals showed elevated blood pressure 141/55, heart rate 90 beats per minute, afebrile, normal oxygenation on room air. Initial labs showed normal white count, normocytic anemia with a hemoglobin of 7.4, matter crit 22, normal neutrophil count, normal coag panel, creatinine 4.3, BUN 71, GFR 10, hemoglobin A1c 5.9%. Normal LFTs. Slight elevation of troponin but flat. Normal lipase. Chest x-ray showed small to moderate left pleural effusion and small pleural effusion on the right with adjacent atelectasis. Pneumonia not excludable. Venous Doppler showed no DVT bilaterally. Patient was admitted to the hospital for consult to Nephrology and be started on dialysis. During the patient's admission she was seen by the surgical team who placed a tunneled hemodialysis catheter to her left IJV 01/25/21. She was then started on dialysis and she has not tolerated it very well. Today she is not going to dialysis but they will really started again tomorrow and continue monitoring her symptoms. They are also still waiting for her total core hep C antibody to come back to help with dialysis chair time when she is discharged She does have an AVF in place to right upper arm but is not mature enough to use. Continue to work on volume status with oral diuretics Lasix 80 mg b.i.d. and dialysis Continue monitoring. Appreciate Nephrology's input. (2) Volume overload: Code(s): E87.70 - Fluid overload, unspecified Status: Acute Assessment and Plan: See above. (3) Elevated troponin: Code(s): R77.8 - Other specified abnormalities of plasma proteins Status: Acute Assessment and Plan: Denies any chest pain at this time. (4) Chronic anemia: Code(s): D64.9 - Anemia, unspecified Status: Acute Assessment and Plan: -Continue to monitor hgb is 7.3 -Nephrology has started Epo -adequate iron stores by anemia studies (5) Insulin dependent type 2 diabetes mellitus: Code(s): E11.9 - Type 2 diabetes mellitus without complications; Z79.4 - long-term (current) use of insulin Status: Chronic Assessment and Plan: -Continue basal insulin. -Initiate sliding scale insulin, Accu-Cheks, and hypoglycemic protocol. -Hgb A1c 5.9% (6) Seizure disorder: Code(s): G40.909 - Epilepsy, unspecified, not intractable, without status epilepticus Status: Acute Assessment and Plan: -Keppra level is within normal limits. (7) Hypertension: Code(s): I10 - Essential (primary) hypertension Status: Chronic Assessment and Plan: -Blood pressures and stable today at 120/51. -Continue antihypertensives and monitor closely. -suspect dialysis will also help control her HTN Time Spent With Patient Time with patient: 25 - 35 minutes Subjective Date/time seen: 01/29/21 15:36 Interval history: Date of service 01/29/2021: Patient reports feeling much better today. After dialysis yesterday she was not feeling well with intermittent chest pain, lightheadedness, dizziness, nausea and today she is feeling much better. She has been able to e
[2021-01-29 16:07] VITALS: O2SAT 99
[2021-01-29 16:48] LABS: Glucose Point of Care 136 mg/dl (65-105)
[2021-01-29] MEDS: ARTIFICIAL TEARS OPHTH SOLN 15 ML BOTTLE 1 DROP LEFT EYE (16:50)
[2021-01-29 20:00] VITALS: PULSE 74; RESP 18; O2SAT 97
[2021-01-29 22:00] VITALS: BP 113/45; PULSE 74; RESP 18; TEMP 36.4; O2SAT 97
[2021-01-29 23:21] LABS: Glucose Point of Care 163 mg/dl (65-105)
[2021-01-30] VITALS (18 sets, daily range): BP systolic 102–139; BP diastolic 35–63; PULSE 70–82; RESP 16–18; TEMP 36.4–37.4; O2SAT 91–98
[2021-01-30 06:43] LABS: Hematocrit 22.8 % (37.0-47.0); Hemoglobin 7.3 g/dL (12.0-15.0)
[2021-01-30 07:03] LABS: Albumin Level 3.6 g/dL (3.5-5.1); Anion Gap 10 mmol/L (8-16); Blood Urea Nitrogen 46 mg/dL (7-17); Calcium 8.3 mg/dL (8.4-10.2); Carbon Dioxide 28 mmol/L (22-30); Chloride 97 mmol/L (98-107); Estimated CRCL calculation 10 ml/min; Estimated Glomerular Filt Rate 11; Glucose 127 mg/dL (65-110); Phosphorus 4.9 mg/dL (2.5-4.5); Potassium 4.2 mmol/L (3.4-5.0); Sodium 135 mmol/L (137-145)
[2021-01-30 08:01] LABS: Glucose Point of Care 102 mg/dl (65-105)
[2021-01-30] MEDS: FUROSEMIDE 80 MG TABLET PO ×2 (08:42→17:48)
[2021-01-30] MEDS: levETIRAcetam 250 MG TABLET PO (08:42)
[2021-01-30] MEDS: HEPARIN SODIUM 5,000 UNITS/ML VIAL 5000 UNITS SUB-Q (09:05)
[2021-01-30] MEDS: EPOETIN ALFA-EPBX 10,000 UNITS/ML VIAL 10000 UNITS IV PUSH (09:54)
[2021-01-30 11:59] LABS: Glucose Point of Care 100 mg/dl (65-105)
--- NOTE | 2021-01-30 12:38 | PM.IMPN ---
Progress Note: A&P Assessment and Plan (1) End stage renal disease: Code(s): N18.6 - End stage renal disease Status: Acute Assessment and Plan: This is a very pleasant 75-year-old female with chronic kidney disease not yet on dialysis, insulin-dependent type 2 diabetes, hypertension, seizure disorder, and breast cancer who presented to the emergency department from home for evaluation of shortness of breath. A right upper extremity AV fistula was created several months ago in anticipation for dialysis and she was hoping to hold off until after the holidays however she has had increasing edema, shortness of breath, and orthopnea. Her shortness of breath is so severe that she is now getting winded when getting dressed. Additionally she reports a 22 lb weight gain in the last 6 months. Initial vitals showed elevated blood pressure 141/55, heart rate 90 beats per minute, afebrile, normal oxygenation on room air. Initial labs showed normal white count, normocytic anemia with a hemoglobin of 7.4, matter crit 22, normal neutrophil count, normal coag panel, creatinine 4.3, BUN 71, GFR 10, hemoglobin A1c 5.9%. Normal LFTs. Slight elevation of troponin but flat. Normal lipase. Chest x-ray showed small to moderate left pleural effusion and small pleural effusion on the right with adjacent atelectasis. Pneumonia not excludable. Venous Doppler showed no DVT bilaterally. Patient was admitted to the hospital for consult to Nephrology and be started on dialysis. During the patient's admission she was seen by the surgical team who placed a tunneled hemodialysis catheter to her left IJV 01/25/21. She was then started on dialysis and Had her 2nd dialysis treatment today and tolerated it much better, other than some chest and back pain/ spasming after dialysis They are also still waiting for her total core hep C antibody to come back to help with dialysis chair time when she is discharged She does have an AVF in place to right upper arm but is not mature enough to use. Continue to work on volume status with oral diuretics Lasix 80 mg b.i.d. and dialysis Continue monitoring. Appreciate Nephrology's input. (2) Volume overload: Code(s): E87.70 - Fluid overload, unspecified Status: Acute Assessment and Plan: See above. (3) Elevated troponin: Code(s): R77.8 - Other specified abnormalities of plasma proteins Status: Acute Assessment and Plan: talked to Dr. Barclay about the patient's pain and discomfort who recommended possible cardiology consultation and workup. I ordered a troponin which was elevated at 0.064, EKG showed normal sinus rhythm with a heart rate of 78 beats per minute, without any significant ST T-wave abnormalities. When compared to EKG from 01/23/2021 at 2:18 p.m. I see no acute changes. I did consult Cardiology due to this chest discomfort and elevated troponin for further evaluation monitoring continue monitoring With repeat troponins at 3 and 6 hours (4) Chronic anemia: Code(s): D64.9 - Anemia, unspecified Status: Acute Assessment and Plan: -Continue to monitor hgb is 7.3 -Nephrology has started Epo -adequate iron stores by anemia studies (5) Insulin dependent type 2 diabetes mellitus: Code(s): E11.9 - Type 2 diabetes mellitus without complications; Z79.4 - shelter (current) use of insulin Status: Chronic Assessment and Plan: -Continue basal insulin. -Initiate sliding scale insulin, Accu-Cheks, and hypoglycemic protocol. -Hgb A1c 5.9% (6) Seizure disorder: Code(s): G40.909 - Epilepsy, unspecified, not intractable, without status epilepticus Status: Acute Assessment and Plan: -Keppra level is within normal limits. (7) Hypertension: Code(s): I10 - Essential (primary) hypertension Status: Chronic Assessment and Plan: -Blood pressures and stable today at 121/41. -C
--- NOTE | 2021-01-30 12:39 | ECG_ITS ---
Measurements Intervals [place] Rate: 78 P: 48 MI: 146 QRS: 34 QRSD: 88 T: 67 QT: 427 QTc: 489 Interpretive Statements SINUS RHYTHM POSSIBLE LEFT ATRIAL ENLARGEMENT BORDERLINE ST-T WAVE ABNORMALITY- LAT/HIGH LAT LEADS BASELINE WANDER- I, III, V1-V2 BORDERLINE ECG Electronically Signed On 01-30-2021 14:46:39 [employer] by Jorge Alberto Alexander D.O.
[2021-01-30 13:23] LABS: Troponin I 0.064 ng/mL (0.000-0.034)
--- NOTE | 2021-01-30 13:54 | PM.CNCAR ---
Assessment and Plan Assessment and plan (1) Chest pain: Code(s): R07.9 - Chest pain, unspecified Status: Acute Assessment and Plan: Patient has atypical chest pain which, I agree, sounds like muscle spasms. No anginal-type chest discomfort. EKG does not show any acute ischemic changes. She does have elevated troponins but these are flat and have been elevated since admission. I do not think the current chest pain is cardiac in etiology. However, with her diabetes, hypertension and kidney disease she is certainly is at risk of developing CAD. I reviewed the signs and symptoms of CAD with her and urged her to seek medical attention should they occur. Consider the addition of a statin (regardless of her cholesterol level). (2) Elevated troponin: Code(s): R77.8 - Other specified abnormalities of plasma proteins Status: Acute Assessment and Plan: Elevated troponins which appear flat, probably chronic related to her chronic kidney disease. She may have some degree of hypertensive heart disease as well although we do not see any LVH on the EKG. No further workup recommended at this time. (3) End stage renal disease: Code(s): N18.6 - End stage renal disease Status: Acute Assessment and Plan: Started dialysis this admission. (4) Hypertension: Code(s): I10 - Essential (primary) hypertension Status: Chronic Assessment and Plan: Improving, controlled today. (5) Insulin dependent type 2 diabetes mellitus: Code(s): E11.9 - Type 2 diabetes mellitus without complications; Z79.4 - director long term care (current) use of insulin Status: Chronic Assessment and Plan: Treatment per hospitalist. Additional Plan Consider the addition of a statin. No further cardiac workup recommended. Please call if we can be of further help. History of Present Illness History of Present Illness Consult date/time: 01/30/21 13:54 Consult reason: chest pain Reason For Visit: Fluid Overload,Anemia Chronic Renal Failure Narrative: Diamond Peace is a 75 y.o. female whom I was asked to see at the requst of Taylor Castillo for my advice and opinion regarding her chest pain, in consultation. The patient has a history of hypertension and diabetes as well as chronic kidney disease. Her machine clothing worker is Dr. Campos, and she has had an AV fistula placed a few months ago in anticipation that she would need dialysis. She was started on dialysis on this admission for volume overload and progressive ZAPIEN. Ms. Colon has had chest pain for many months, worse now since she started dialysis. She describes these as muscle spasms that occur in the right lateral chest and left lower and lateral chest. She these can occur at rest but are aggravated by movement, particularly if she twists or turns, when she will have intense spasm like pain which can cause her to feel short of breath and sweaty. Touching the area seems to aggravate these spasms. She will sit quietly for few minutes and they will resolve. They bothered her a lot after dialysis on Thursday and also today. She is upset that we have not found a way to ameliorate the spasms. The patient has no history of heart disease. She denies any type of chest pain pressure tightness. He has not had any heart testing or seen a horticultural therapist in the past. The patient asks me why she needs to see another doctor (me). She feels that we are just making money off my insurance. She was concerned her insurance rates would rise since we are charging her insurance. However she did not object to my asking questions and doing an exam when I assured her that I was concerned about her having CP since so many diabetics develop heart disease and we just wanted to make sure she was OK. She agreed that missing heart disease would be a bad thing.
[2021-01-30] MEDS: ACETAMINOPHEN 325 MG TABLET 650 MG PO (14:00)
[2021-01-30] MEDS: MECLIZINE HCL 12.5 MG TABLET PO ×2 (14:12→17:48)
[2021-01-30 17:00] LABS: Glucose Point of Care 214 mg/dl (65-105)
[2021-01-30 17:12] LABS: Troponin I 0.057 ng/mL (0.000-0.034)
--- NOTE | 2021-01-30 17:38 | PM.PNNEP ---
Progress Note: A&P Assessment and Plan (1) End stage renal disease: Code(s): N18.6 - End stage renal disease Status: Acute Assessment and Plan: Now end-stage renal disease. volume status looks improved. Potassium and bicarbonate are doing well. She is making less urine than she did. We can switch to p.o. Lasix. HD done earlier. I talked with FIRE HYDRANT MECHANIC Napoleon about the cramping. She is going to evaluate the heart. (2) Volume overload: Code(s): E87.70 - Fluid overload, unspecified Status: Acute Assessment and Plan: Improved. (3) Anemia: Qualifiers: Anemia type: unspecified type Qualified Code(s): D64.9 - Anemia, unspecified Code(s): D64.9 - Anemia, unspecified Status: Chronic Assessment and Plan: partly related to CKD but underlying malignancy could be playing a role Epogen with dialysis adequate iron stores by anemia studies hemoglobin stable in the low 7s It will take a few weeks for the hemoglobin to wander up to goal (4) Hypertension: Code(s): I10 - Essential (primary) hypertension Status: Chronic Assessment and Plan: Blood pressure is well controlled. Off all blood pressure medicines. (5) Insulin dependent type 2 diabetes mellitus: Code(s): E11.9 - Type 2 diabetes mellitus without complications; Z79.4 - termite exterminator helper (current) use of insulin Status: Chronic Assessment and Plan: On Accu-Cheks and sliding-scale insulin. Subjective Date/time seen: 01/30/21 17:38 Interval history: Diamond finished her dialysis earlier today. She felt fine during the treatment. I talked with the nurse and her blood pressure did very well and the patient felt good from her standpoint as well. When she got back to the room she had more cramping in her chest and back. She said every time she tried to move her torso a cramping would be worse. She did not have shortness of breath during that time or sweating or nausea. She again said that she had that kind of symptom before she started dialysis. She has not had any cardiac evaluation. Exam Narrative: General: WD/WN female in NAD Heart: normal S1 and S2; no rub Lungs: decreased with a few bibasilar crackles Abdomen: soft, nontender, nondistended, positive bowel sounds Extremities: trace edema Skin: no rash or subcu nodules Objective Data Vital Signs Vital Signs: Vital Signs - 24 hr 01/29/21 20:00 01/29/21 22:00 01/30/21 06:00 Temperature 36.4 C 36.4 C Pulse Rate 74 74 82 Respiratory Rate 18 18 18 Blood Pressure 113/45 L 108/50 L Pulse Oximetry 97 97 98 01/30/21 08:45 01/30/21 08:58 01/30/21 09:15 Temperature 37.2 C Pulse Rate 81 75 73 Respiratory Rate 16 Blood Pressure 139/63 139/52 L 128/59 L Pulse Oximetry 01/30/21 09:30 01/30/21 09:45 01/30/21 10:00 Temperature Pulse Rate 71 70 70 Respiratory Rate Blood Pressure 128/57 L 113/54 L 113/55 L Pulse Oximetry 01/30/21 10:15 01/30/21 10:30 01/30/21 10:45 Temperature Pulse Rate 71 71 71 Respiratory Rate Blood Pressure 106/52 L 109/53 L 103/53 L Pulse Oximetry 01/30/21 11:02 01/30/21 11:15 01/30/21 11:29 Temperature Pulse Rate 70 70 70 Respiratory Rate Blood Pressure 104/53 L 104/59 L 102/50 L Pulse Oximetry 01/30/21 11:37 01/30/21 14:00 Temperature 37.1 C 37.4 C Pulse Rate 73 78 Respiratory Rate 16 18 Blood Pressure 125/63 121/41 L Pulse Oximetry 91 Intake/Output Intake/Output: Intake & Output 01/27/21 01/28/21 01/29/21 01/30/21 23:59 23:59 23:59 23:59 Intake Total 780 1170 800 840 Output Total 500 5855 524 6897 Balance 280 -360 50 -910 Meds/Results Medications: Active Medications Generic Name Dose Route Start Last Admin Trade Name Mattiq PRN Reason Stop Dose Admin Acetaminophen 650 mg 01/27/21 12:06 01/30/21 14:00 Acetaminophen 325 Mg Tablet PO 650 mg Q4H PRN Administration
[2021-01-30] MEDS: INSULIN ASPART (*BKC) 100 UNITS/ML SUB-Q (17:47)
[2021-01-30 19:44] LABS: Troponin I 0.056 ng/mL (0.000-0.034)
[2021-01-31] VITALS (7 sets, daily range): BP systolic 117–140; BP diastolic 40–50; PULSE 76–83; RESP 16; TEMP 36.6–37.2; O2SAT 93–97
--- NOTE | 2021-01-31 | ECHO_ITS ---
Patient Info Name: Diamond Peace Age: 75 years : 1945 Gender: Female Ht: 61 in Wt: 154 lbs BSA: 1.76 m2 HR: 84 bpm BP: 140 / 50 mmHg Heart Rhythm: Sinus Rhythm Technical Quality: Good Exam Date: 01/31/2021 3:59 PM Exam Location: [facility] Pulmonary Exam Room: 313 Patient Status: Inpatient Admit Date: 01/24/2021 Staff Ordering Physician: Clarita Castillo PA-C Is Analyst: Raina Ren RDCS Attending Provider: Clarita Castillo PA-C Exam Type: CA echo doppler color flow Study Info Complete two-dimensional, color flow and Doppler transthoracic echocardiogram is performed. Summary 1. Complete two-dimensional, color flow and Doppler transthoracic echocardiogram is performed. 2. The apical septum, and apical cap are hypokinetic. 3. Left ventricular chamber dimension is mildly enlarged. 4. Left ventricular systolic function is low normal, estimated at 50-55%. 5. There is mildly increased left ventricular wall thickness. 6. The left ventricular diastolic function is grade I diastolic dysfunction. 7. Left atrial chamber dimension is mildly enlarged. 8. There is mild mitral valve regurgitation. 9. The mitral valve annulus is moderately calcified. 10. There is mild tricuspid valve regurgitation. 11. Moderate pulmonary hypertension, estimated pulmonary arterial systolic pressure is 45 mmHg. 12. There is mild pulmonic regurgitation. Left Ventricle Left ventricular chamber dimension is mildly enlarged. Left ventricular systolic function is low normal, estimated at 50-55%. There is mildly increased left ventricular wall thickness. The left ventricular diastolic function is grade I diastolic dysfunction. The apical septum, and apical cap are hypokinetic. All other russell appear normal. Right Ventricle Right ventricular chamber dimension is normal. Right ventricular systolic function is normal. Left Atria Left atrial chamber dimension is mildly enlarged. Right Atria Right atrial chamber dimension is normal. Atrial Septum Possible patent foramen ovale visualized by color flow imaging. Aortic Valve The aortic valve is trileaflet. There is mild aortic valve sclerosis. There is no aortic valve stenosis. There is trace aortic valve regurgitation. Pulmonic Valve The pulmonic valve is normal. There is no pulmonic valve stenosis. There is mild pulmonic regurgitation. Mitral Valve The mitral valve has thickened leaflets. There is no mitral valve stenosis. There is mild mitral valve regurgitation. The mitral valve annulus is moderately calcified. Tricuspid Valve The tricuspid valve leaflets are normal. There is no significant tricuspid valve stenosis. There is mild tricuspid valve regurgitation. Moderate pulmonary hypertension, estimated pulmonary arterial systolic pressure is 45 mmHg. Pericardium/Pleural The pericardium appears normal. There is no pericardial effusion. Inferior Vena Cava Normal inferior vena cava with <50% collapse upon inspiration consistent with elevated right atrial pressure, 10 mmHg. Aorta The aortic root size at the sinus of Valsalva is normal. Left Ventricular Outflow Tract Name Value Normal LVOT 2D LVOT Diameter 2.0 cm
--- NOTE | 2021-01-31 | EST_ITS ---
Patient Info Name: Diamond Peace Age: 75 years : 1945 Gender: Female Ht: 61 in Wt: 154 lbs BSA: 1.76 m2 Exam Date: 01/31/2021 12:41 PM Exam Location: [facility] Stress Patient Status: Inpatient Admit Date: 01/24/2021 Staff Ordering Physician: Toribio Barclay MD Attending Provider: Clarita Castillo PA-C Exercise Technologist: Sushil Armendariz RDCS, RT Exercise Physician: Waldo Rene MD Exam Type: CA stress lupe w NM Study Info A regadenoson stress test was performed. Summary 1. Please correlate with nuclear medicine images, reported separately. 2. No abnormal ST-T wave changes with lexiscan. Protocol: Lexiscan Stress ECG Details Stage: REST Duration (min): 2 min : 27 sec HR (bpm): 80 SBP (mmHg): 154 DBP (mmHg): 74 Stage: REST Duration (min): 8 min : 35 sec HR (bpm): 81 SBP (mmHg): 154 DBP (mmHg): 74 Stage: STAGE 1 Duration (min): 0 min : 59 sec HR (bpm): 88 SBP (mmHg): 165 DBP (mmHg): 49 Stage: RECOVERY Duration (min): 1 min : 0 sec HR (bpm): 91 SBP (mmHg): 165 DBP (mmHg): 49 Stage: RECOVERY Duration (min): 2 min : 0 sec HR (bpm): 90 SBP (mmHg): 143 DBP (mmHg): 68 Stage: RECOVERY Duration (min): 3 min : 0 sec HR (bpm): 88 SBP (mmHg): 157 DBP (mmHg): 69 Stage: RECOVERY Duration (min): 3 min : 40 sec HR (bpm): 88 SBP (mmHg): 157 DBP (mmHg): 69 Rest HR: 81 bpm Peak HR: 91 bpm Rest Sys BP: 154 mmHg Peak Sys BP: 165 mmHg Max Pred HR: 146 bpm % Max Pred HR: 62 % Target HR: 124 bpm Max RPP: 15,015 bpm*mmHg Target HR Summary: Hemodynamic response to exercise was normal BP Response: Normal blood pressure response Termination Reason: Completed protocol Cardiac Symptoms: None Total Time: 1 min : 0 sec Rest Sanchez BP: 74 mmHg Peak Sanchez BP: 49 mmHg Total Dose: 0.4 mg Resting ECG Normal sinus rhythm. Nonspecific ST abnormality. Stress ECG No abnormal ST/T wave changes with Lexiscan. Arrhythmias None. Report Signatures
[2021-01-31] MEDS: HEPARIN SODIUM 5,000 UNITS/ML VIAL 5000 UNITS SUB-Q ×3 (01:47→20:20)
[2021-01-31] MEDS: MECLIZINE HCL 12.5 MG TABLET PO ×5 (01:48→20:19)
[2021-01-31 02:54] LABS: Glucose Point of Care 175 mg/dl (65-105)
[2021-01-31 05:38] LABS: Hepatitis B Core Ab Total Nonreactive (Nonreactive)
[2021-01-31 06:42] LABS: Mean Corpuscular Hemoglobin 29.4 pg (26-34); Mean Corpuscular Volume 91.9 fl (80-100); Mean Platelet Volume 11.3 fl (7.4-10.4); Platelet Count Result 211 k/mm3 (150-375); Red Blood Count 2.72 M/mm3 (4.2-5.4); Red Cell Distribution Width 11.6 % (11.5-14.5); White Blood Count 7.1 K/mm3 (4.5-10.0)
[2021-01-31 06:53] LABS: Albumin Level 3.7 g/dL (3.5-5.1); Anion Gap 7 mmol/L (8-16); Blood Urea Nitrogen 33 mg/dL (7-17); Calcium 8.4 mg/dL (8.4-10.2); Carbon Dioxide 29 mmol/L (22-30); Chloride 97 mmol/L (98-107); Estimated CRCL calculation 12 ml/min; Estimated Glomerular Filt Rate 13; Glucose 131 mg/dL (65-110); Phosphorus 3.9 mg/dL (2.5-4.5); Potassium 3.8 mmol/L (3.4-5.0); Sodium 133 mmol/L (137-145)
[2021-01-31] MEDS: levETIRAcetam 250 MG TABLET PO (10:44)
[2021-01-31] MEDS: FUROSEMIDE 80 MG TABLET PO ×2 (10:44→18:27)
--- NOTE | 2021-01-31 14:59 | PCNWS ---
Weekly nutritional screen. Patient is tolerating current diet with adequate intake. No weight loss reported. No nutritional needs at this time.
--- NOTE | 2021-01-31 15:21 | PM.IMPN ---
Progress Note: A&P Assessment and Plan (1) End stage renal disease: Code(s): N18.6 - End stage renal disease Status: Acute Assessment and Plan: This is a very pleasant 75-year-old female with chronic kidney disease not yet on dialysis, insulin-dependent type 2 diabetes, hypertension, seizure disorder, and breast cancer who presented to the emergency department from home for evaluation of shortness of breath. A right upper extremity AV fistula was created several months ago in anticipation for dialysis and she was hoping to hold off until after the holidays however she has had increasing edema, shortness of breath, and orthopnea. Her shortness of breath is so severe that she is now getting winded when getting dressed. Additionally she reports a 22 lb weight gain in the last 6 months. Initial vitals showed elevated blood pressure 141/55, heart rate 90 beats per minute, afebrile, normal oxygenation on room air. Initial labs showed normal white count, normocytic anemia with a hemoglobin of 7.4, matter crit 22, normal neutrophil count, normal coag panel, creatinine 4.3, BUN 71, GFR 10, hemoglobin A1c 5.9%. Normal LFTs. Slight elevation of troponin but flat. Normal lipase. Chest x-ray showed small to moderate left pleural effusion and small pleural effusion on the right with adjacent atelectasis. Pneumonia not excludable. Venous Doppler showed no DVT bilaterally. Patient was admitted to the hospital for consult to Nephrology and be started on dialysis. During the patient's admission she was seen by the surgical team who placed a tunneled hemodialysis catheter to her left IJV 01/25/21. She was then started on dialysis and tolerated her dialysis yesterday much better, other than some chest and back pain/ spasming after dialysis Her testing has come back and she has a chair time for dialysis as an outpatient in [place] for Thursday. She does have an AVF in place to right upper arm but is not mature enough to use. Continue to work on volume status with oral diuretics Lasix 80 mg b.i.d. and dialysis Continue monitoring. Appreciate Nephrology's input. (2) Elevated troponin: Code(s): R77.8 - Other specified abnormalities of plasma proteins Status: Acute Assessment and Plan: talked to Dr. Barclay about the patient's pain and discomfort who recommended possible cardiology consultation and workup. I ordered a troponin which was elevated at 0.064 and trending down at 0.05. EKG showed normal sinus rhythm with a heart rate of 78 beats per minute, without any significant ST T-wave abnormalities. When compared to EKG from 01/23/2021 at 2:18 p.m. I see no acute changes. Cardiology was consulted and stated that they felt that her chest pain was not cardiac in nature. Cardiology believes elevated troponins from dialysis, no acute cardiac cause. The chicken handler Dr. Barclay was concerned about the patient's heart so he ordered a Lexiscan stress test for further evaluate because if she is discharged and develops chest pain after dialysis again they would bring her back to the ER for further evaluation and we want to rule cardiac cause while here. Pending stress test results at this time. continue monitoring (3) Volume overload: Code(s): E87.70 - Fluid overload, unspecified Status: Acute Assessment and Plan: See above. (4) Chronic anemia: Code(s): D64.9 - Anemia, unspecified Status: Acute Assessment and Plan: -Continue to monitor hgb is 8.0. Stable -Nephrology has started Epo -adequate iron stores by anemia studies (5) Insulin dependent type 2 diabetes mellitus: Code(s): E11.9 - Type 2 diabetes mellitus without complications; Z79.4 - brim pouncer (current) use of insulin Status: Chronic Assessment and Plan: -Continue basal insulin. -Initiate sliding scale insulin, Accu-Cheks, and hypoglycemic protocol. -Hgb A1c 5.9
--- NOTE | 2021-01-31 16:17 | P.PNNP_ITS ---
Progress Note: A&P Assessment and Plan (1) End stage renal disease: Code(s): N18.6 - End stage renal disease Status: Acute Assessment and Plan: * Now end-stage renal disease. * volume status looks improved. * Potassium and bicarbonate are doing well. * on Lasix * HD due tomorrow * I talked with JERRY Bender about the cramping. I fear that if she gets cramping like this as an outpatient they will send her back to the hospital. Will check a stress test. (2) Volume overload: Code(s): E87.70 - Fluid overload, unspecified Status: Acute Assessment and Plan: * Improved. (3) Anemia: Qualifiers: Anemia type: unspecified type Qualified Code(s): D64.9 - Anemia, unspecified Code(s): D64.9 - Anemia, unspecified Status: Chronic Assessment and Plan: * partly related to CKD but underlying malignancy could be playing a role * Epogen with dialysis * adequate iron stores by anemia studies * hemoglobin up to 8.0 now. * It will take a few weeks for the hemoglobin to wander up to goal (4) Hypertension: Code(s): I10 - Essential (primary) hypertension Status: Chronic Assessment and Plan: * Blood pressure is well controlled. * Off all blood pressure medicines. (5) Insulin dependent type 2 diabetes mellitus: Code(s): E11.9 - Type 2 diabetes mellitus without complications; Z79.4 - alf (current) use of insulin Status: Chronic Assessment and Plan: * On Accu-Cheks and sliding-scale insulin. Subjective Date/time seen: 01/31/21 16:17 Interval history: the patient slept pretty well last night. No more chest pain or cramping. Exam Narrative: General: WD/WN female in NAD Heart: normal S1 and S2; no rub Or gallop Lungs: decreased with a few bibasilar crackles Abdomen: soft, nontender, nondistended, positive bowel sounds Extremities: trace edema Skin: no rash or subcu nodules Objective Data Vital Signs Vital Signs: Vital Signs - 24 hr 01/30/21 20:00 01/30/21 22:00 01/31/21 00:00 Temperature 36.9 C Pulse Rate 77 77 80 Respiratory Rate 18 18 Blood Pressure 115/35 L Pulse Oximetry 94 94 01/31/21 04:00 01/31/21 05:38 01/31/21 14:00 Temperature 37.2 C 36.6 C Pulse Rate 76 80 83 Respiratory Rate 16 16 Blood Pressure 117/40 L 140/50 L Pulse Oximetry 93 97 Intake/Output Intake/Output: Intake & Output 01/28/21 01/29/21 01/30/21 01/31/21 23:59 23:59 23:59 23:59 Intake Total 5771 298 0833 1110 Output Total 7551 319 7215 500 Balance -360 50 -450 610 Meds/Results Medications: Active Medications Generic Name Dose Route Start Last Admin Trade Name Freq PRN Reason Stop Dose Admin Acetaminophen 650 mg 01/27/21 12:06 01/30/21 14:00 Acetaminophen 325 Mg Tablet PO 650 mg Q4H PRN Administration Headache or pain 1-3 Acetaminophen/Codeine Phosphate 1 tab 01/27/21 12:06 Acetaminophen/Codeine (*Crx) 300/30 Mg Tablet PO Q4H PRN Pain Rated 4-6 Hydrocodone Bitart/Acetaminophen 1 tab 01/27/21 12:06 Hydrocodone/Acetaminophen (*Crx) 5-325 Mg Tablet PO Q4H PRN
--- NOTE | 2021-01-31 16:17 | PM.PNNEP ---
Progress Note: A&P Assessment and Plan (1) End stage renal disease: Code(s): N18.6 - End stage renal disease Status: Acute Assessment and Plan: Now end-stage renal disease. volume status looks improved. Potassium and bicarbonate are doing well. on Lasix HD due tomorrow I talked with CITY PLANNER Napoleon about the cramping. I fear that if she gets cramping like this as an outpatient they will send her back to the hospital. Will check a stress test. (2) Volume overload: Code(s): E87.70 - Fluid overload, unspecified Status: Acute Assessment and Plan: Improved. (3) Anemia: Qualifiers: Anemia type: unspecified type Qualified Code(s): D64.9 - Anemia, unspecified Code(s): D64.9 - Anemia, unspecified Status: Chronic Assessment and Plan: partly related to CKD but underlying malignancy could be playing a role Epogen with dialysis adequate iron stores by anemia studies hemoglobin up to 8.0 now. It will take a few weeks for the hemoglobin to wander up to goal (4) Hypertension: Code(s): I10 - Essential (primary) hypertension Status: Chronic Assessment and Plan: Blood pressure is well controlled. Off all blood pressure medicines. (5) Insulin dependent type 2 diabetes mellitus: Code(s): E11.9 - Type 2 diabetes mellitus without complications; Z79.4 - [facility] (current) use of insulin Status: Chronic Assessment and Plan: On Accu-Cheks and sliding-scale insulin. Subjective Date/time seen: 01/31/21 16:17 Interval history: the patient slept pretty well last night. No more chest pain or cramping. Exam Narrative: General: WD/WN female in NAD Heart: normal S1 and S2; no rub Or gallop Lungs: decreased with a few bibasilar crackles Abdomen: soft, nontender, nondistended, positive bowel sounds Extremities: trace edema Skin: no rash or subcu nodules Objective Data Vital Signs Vital Signs: Vital Signs - 24 hr 01/30/21 20:00 01/30/21 22:00 01/31/21 00:00 Temperature 36.9 C Pulse Rate 77 77 80 Respiratory Rate 18 18 Blood Pressure 115/35 L Pulse Oximetry 94 94 01/31/21 04:00 01/31/21 05:38 01/31/21 14:00 Temperature 37.2 C 36.6 C Pulse Rate 76 80 83 Respiratory Rate 16 16 Blood Pressure 117/40 L 140/50 L Pulse Oximetry 93 97 Intake/Output Intake/Output: Intake & Output 01/28/21 01/29/21 01/30/21 01/31/21 23:59 23:59 23:59 23:59 Intake Total 1108 085 8311 1110 Output Total 3587 807 5321 500 Balance -360 50 -450 610 Meds/Results Medications: Active Medications Generic Name Dose Route Start Last Admin Trade Name Freq PRN Reason Stop Dose Admin Acetaminophen 650 mg 01/27/21 12:06 01/30/21 14:00 Acetaminophen 325 Mg Tablet PO 650 mg Q4H PRN Administration Headache or pain 1-3 Acetaminophen/Codeine Phosphate 1 tab 01/27/21 12:06 Acetaminophen/Codeine (*Crx) 300/30 Mg Tablet PO Q4H PRN Pain Rated 4-6 Hydrocodone Bitart/Acetaminophen 1 tab 01/27/21 12:06 Hydrocodone/Acetaminophen (*Crx) 5-325 Mg Tablet PO Q4H PRN Pain Rated 7-10 Artificial Tears 1 drop 01/29/21 14:11 01/29/21 16:50 Artificial Tears Ophth Soln 15 Ml Bottle LEFT EYE 1 drop QID PRN Administration Dry Eye(s) Aspirin 81 mg 02/01/21 09:00 Aspirin 81 Mg Enteric Tablet PO QAM KATHERINE Atorvastatin Calcium 20 mg 02/01/21 09:00 Atorvastatin 20 Mg Tablet PO DAILY KATHERINE Dextrose 12.5 gm 01/23/21 23:02 Dextrose 50% 25 Gm/50 Ml Syringe IV PUSH PRN PRN Hypoglycemia Protocol Epoetin Brian-epbx 10,000 units 01/30/21 07:25 01/30/21 09:54 Epoetin Brian-Epbx 10,000 Units/Ml Vial IV PUSH 10,000 units MOWEFR KATHERINE Administration Furosemide 80 mg 01/29/21 09:00 01/31/21 10:44 Furosemide 80 Mg Tablet PO 80 mg BID KATHERINE Administration Glucagon 1 mg 01/23/21 23:02 Glucagon For Inj
[2021-01-31 17:12] LABS: Glucose Point of Care 194 mg/dl (65-105)
[2021-01-31] MEDS: METOPROLOL TARTRATE 6.25 MG TABLET PO (20:19)
[2021-01-31 23:42] LABS: Glucose Point of Care 228 mg/dl (65-105)
[2021-02-01] VITALS (24 sets, daily range): BP systolic 114–157; BP diastolic 36–68; PULSE 66–80; RESP 16–18; TEMP 14–37; O2SAT 95–100
[2021-02-01 06:58] LABS: Hemoglobin 8.1 g/dL (12.0-15.0); Mean Corpuscular HGB Conc 32.4 g/dl (32-36); Mean Corpuscular Hemoglobin 29.2 pg (26-34); Mean Corpuscular Volume 90.3 fl (80-100); Mean Platelet Volume 11.6 fl (7.4-10.4); Platelet Count Result 238 k/mm3 (150-375); Red Blood Count 2.77 M/mm3 (4.2-5.4); Red Cell Distribution Width 11.6 % (11.5-14.5); White Blood Count 7.6 K/mm3 (4.5-10.0)
[2021-02-01 07:13] LABS: Albumin Level 3.7 g/dL (3.5-5.1); Anion Gap 11 mmol/L (8-16); Blood Urea Nitrogen 41 mg/dL (7-17); Calcium 8.6 mg/dL (8.4-10.2); Carbon Dioxide 26 mmol/L (22-30); Chloride 97 mmol/L (98-107); Estimated CRCL calculation 10 ml/min; Estimated Glomerular Filt Rate 10; Glucose 142 mg/dL (65-110); Phosphorus 4.1 mg/dL (2.5-4.5); Potassium 3.7 mmol/L (3.4-5.0); Sodium 134 mmol/L (137-145)
--- NOTE | 2021-02-01 08:39 | PCOTNOTE ---
Attempted to see patient at this time, however patient leaving floor for dialysis.
--- NOTE | 2021-02-01 08:54 | PCPTNOTE ---
The patient treatment was not able to be completed due to patient out of room for dialysis. Will plan to continue treatment per plan of care.
[2021-02-01] MEDS: SODIUM CHLORIDE 0.9% IV 1,000 ML 999 ML IV CONT (10:34)
--- NOTE | 2021-02-01 11:30 | PM.PNNEP ---
Progress Note: A&P Assessment and Plan (1) End stage renal disease: Code(s): N18.6 - End stage renal disease Status: Acute Assessment and Plan: HD today and continue M/W/F dialysis schedule electrolytes, volume status, and clearance acceptab;e continue current therapy (2) Volume overload: Code(s): E87.70 - Fluid overload, unspecified Status: Acute Assessment and Plan: better with ultrafiltration/fluid removal with dialysis continue oral lasix on since she has some residual kidney function (3) Anemia: Qualifiers: Anemia type: unspecified type Qualified Code(s): D64.9 - Anemia, unspecified Code(s): D64.9 - Anemia, unspecified Status: Chronic Assessment and Plan: partly related to CKD but underlying malignancy could be playing a role Epogen with dialysis adequate iron stores by anemia studies H/H slowly improving -- will take some time for Epogen to kick in (4) Hypertension: Code(s): I10 - Essential (primary) hypertension Status: Chronic Assessment and Plan: blood pressure is well controlled. off all BP medications at this time (5) Insulin dependent type 2 diabetes mellitus: Code(s): E11.9 - Type 2 diabetes mellitus without complications; Z79.4 - emt intermediate (current) use of insulin Status: Chronic Assessment and Plan: follow accu-Cheks on sliding-scale insulin Will continue to follow. Subjective Date/time seen: 02/01/21 11:30 Chart reviewed - assuming care from Dr. Barclay; tolerating dialysis treatment at the time of my visit (seen on HD at 11:15am); s/p stress test yesterday with results noted; no apparent issues or problems overnight or earlier this morning; no further chest pains voiced. Exam Narrative: General: WD/WN female in NAD Heart: normal S1 and S2; no rub Lungs: decreased at bases Abdomen: soft, nontender, nondistended, positive bowel sounds Extremities: trace edema Skin: warm and dry Objective Data Vital Signs Vital Signs: Vital Signs Temp Pulse Resp BP Pulse Ox 02/01/21 11:25 36.7 C 68 18 126/58 L 02/01/21 11:18 66 128/58 L 02/01/21 11:00 67 122/59 L 02/01/21 10:45 67 122/56 L 02/01/21 10:30 66 117/57 L 02/01/21 10:15 66 128/60 02/01/21 10:00 68 118/55 L 02/01/21 09:45 69 128/48 L 02/01/21 09:30 68 131/68 02/01/21 09:15 68 130/59 L 02/01/21 09:00 68 133/63 02/01/21 08:46 71 157/63 H 02/01/21 08:35 36.7 C 74 16 156/66 H 02/01/21 08:00 68 02/01/21 05:44 36.3 C L 74 18 148/58 H 97 02/01/21 04:00 74 02/01/21 00:00 71 01/31/21 20:19 83 01/31/21 20:00 78 01/31/21 14:00 36.6 C 83 16 140/50 L 97 Intake/Output Intake/Output: Intake & Output 01/29/21 01/30/21 01/31/21 02/01/21 23:59 23:59 23:59 23:59 Intake Total 800 2200 1360 990 Output Total 750 2650 1100 900 Balance 50 -450 260 90 Meds/Results Medications: Active Medications Generic Name Dose Route Start Last Admin Trade Name Freq PRN Reason Stop Dose Admin Acetaminophen 650 mg 01/27/21 12:06 01/30/21 14:00 Acetaminophen 325 Mg Tablet PO 650 mg Q4H PRN Administration Headache or pain 1-3 Acetaminophen/Codeine Phosphate 1 tab 01/27/21 12:06 Acetaminophen/Codeine (*Crx) 300/30 Mg Tablet PO Q4H PRN Pain Rated 4-6 Hydrocodone Bitart/Acetaminophen 1 tab 01/27/21 12:06 Hydrocodone/Acetaminophen (*Crx) 5-325 Mg Tablet PO Q4H PRN Pain Rated 7-10 Artificial Tears 1 drop 01/29/21 14:11 01/29/21 16:50 Artificial Tears Ophth Soln 15 Ml Bottle LEFT EYE 1 drop QID PRN Administration Dry Eye(s) Aspirin 81 mg 02/01/21 09:00 02/01/21 11:51 Aspirin 81 Mg Enteric Tablet PO 81 mg QAM KATHERINE Administration Atorvastatin Calcium 20 mg 02/01/21 09:00 12/24/21 11:52 Atorvastatin 20 Mg Tablet PO 20 mg DAILY
[2021-02-01] MEDS: ASPIRIN 81 MG ENTERIC TABLET PO (11:51)
[2021-02-01] MEDS: ATORVASTATIN 20 MG TABLET PO (11:52)
[2021-02-01] MEDS: levETIRAcetam 250 MG TABLET PO (11:52)
[2021-02-01] MEDS: FUROSEMIDE 80 MG TABLET PO ×2 (11:52→17:07)
[2021-02-01] MEDS: METOPROLOL TARTRATE 6.25 MG TABLET PO ×2 (11:52→22:39)
[2021-02-01] MEDS: HEPARIN SODIUM 5,000 UNITS/ML VIAL 5000 UNITS SUB-Q ×2 (11:57→22:40)
[2021-02-01 12:02] LABS: Glucose Point of Care 160 mg/dl (65-105)
--- NOTE | 2021-02-01 13:28 | PM.DS ---
DS: Admitting Diagnosis Discharge Date 02/01/21 Admitting Diagnosis Generalized fatigue DS: Discharge Diagnosis Discharge Diagnosis (1) End stage renal disease: Code(s): N18.6 - End stage renal disease Status: Acute Assessment and Plan: This is a very pleasant 75-year-old female with chronic kidney disease not yet on dialysis, insulin-dependent type 2 diabetes, hypertension, seizure disorder, and breast cancer who presented to the emergency department from home for evaluation of shortness of breath. A right upper extremity AV fistula was created several months ago in anticipation for dialysis and she was hoping to hold off until after the holidays however she has had increasing edema, shortness of breath, and orthopnea. Her shortness of breath is so severe that she is now getting winded when getting dressed. Additionally she reports a 22 lb weight gain in the last 6 months. Initial vitals showed elevated blood pressure 141/55, heart rate 90 beats per minute, afebrile, normal oxygenation on room air. Initial labs showed normal white count, normocytic anemia with a hemoglobin of 7.4, matter crit 22, normal neutrophil count, normal coag panel, creatinine 4.3, BUN 71, GFR 10, hemoglobin A1c 5.9%. Normal LFTs. Slight elevation of troponin but flat. Normal lipase. Chest x-ray showed small to moderate left pleural effusion and small pleural effusion on the right with adjacent atelectasis. Pneumonia not excludable. Venous Doppler showed no DVT bilaterally. Patient was admitted to the hospital for consult to Nephrology and be started on dialysis. During the patient's admission she was seen by the surgical team who placed a tunneled hemodialysis catheter to her left IJV 01/25/21. She was then started on dialysis and tolerated her dialysis yesterday much better, other than some chest and back pain/ spasming after dialysis Her testing has come back and she has a chair time for dialysis as an outpatient in [place] for Thursday. She does have an AVF in place to right upper arm but is not mature enough to use. Continue oral diuretics Lasix 80 mg b.i.d. and dialysis She is otherwise stable at this time to be discharged to start dialysis in [place] on Thursday. Follow-up instructions given. Return to ER warnings given. Patient understands agrees with plan all questions answered. (2) Elevated troponin: Code(s): R77.8 - Other specified abnormalities of plasma proteins Status: Acute Assessment and Plan: talked to Dr. Barclay about the patient's pain and discomfort who recommended possible cardiology consultation and workup. I ordered a troponin which was elevated at 0.064 and trending down at 0.05. EKG showed normal sinus rhythm with a heart rate of 78 beats per minute, without any significant ST T-wave abnormalities. When compared to EKG from 01/23/2021 at 2:18 p.m. I see no acute changes. Cardiology was consulted and stated that they felt that her chest pain was not cardiac in nature. Cardiology believes elevated troponins from dialysis, no acute cardiac cause. The apron trimmer Dr. Barclay was concerned about the patient's heart so he ordered a Lexiscan stress test which showed an EF of 41% and a small old infarction. We got an echocardiogram which showed an EF of 50-55%, mild LV enlargement, mild LVH, diastolic dysfunction grade 1, moderate pulmonary hypertension. Talked to Cardiology who recommended starting aspirin 81 mg, statin and small dose of metoprolol. Patient will follow-up with Dr. Sandoval in the office in 1 week after discharge. She is not having any more chest pain. Mostly just spasming when she turns a certain way. Do not feel this is cardiac in nature at this time. (3) Volume overload: Code(s): E87.70 - Fluid overload, unspecified Status: Acute Assessment and Plan: See above. (4) Chronic anemia: Code(s): D64.9 - Anemia, unspecified
[2021-02-01 16:59] LABS: Glucose Point of Care 153 mg/dl (65-105)
[2021-02-01] MEDS: MECLIZINE HCL 12.5 MG TABLET PO ×2 (17:07→22:40)
[2021-02-01 22:47] LABS: Glucose Point of Care 241 mg/dl (65-105)
[2021-02-02 05:40] VITALS: BP 121/42; PULSE 77; RESP 18; TEMP 36.7; O2SAT 93
== END 2021-02-02 08:20 | disposition home or self-care (01) | DRG 673 ==
LOC: ANHED 16:21 → ANH3MEDSUR 19:27
PROVIDERS: Emergency Medicine; Family Medicine; Internal Medicine Nephrology; Physician Assistant; Surgery; Admitting Provider Hospitalist; Emergency Provider Emergency Medicine; Visit Provider Physician Assistant
PROC: 0JH63XZ Insertion of Tunneled Vascular Access Device into Chest Subcutaneous Tissue and Fascia, Percutaneous Approach (ICD-10-PCS; CPT 36908; principal; 2021-01-25 17:00)
DX: I12.0 Hypertensive chronic kidney disease with stage 5 chronic kidney disease or end stage renal disease (principal); N18.6 End stage renal disease; C78.00 Secondary malignant neoplasm of unspecified lung; N17.9 Acute kidney failure, unspecified; E11.22 Type 2 diabetes mellitus with diabetic chronic kidney disease; G40.909 Epilepsy, unspecified, not intractable, without status epilepticus; D63.1 Anemia in chronic kidney disease; E55.9 Vitamin D deficiency, unspecified; Z79.4 Long term (current) use of insulin; Z85.3 Personal history of malignant neoplasm of breast; Z90.49 Acquired absence of other specified parts of digestive tract; Z90.710 Acquired absence of both cervix and uterus; Z87.891 Personal history of nicotine dependence; Z99.2 Dependence on renal dialysis
CPT/HCPCS: 36415; 71046; 77001; 78452; 80048; 80053; 80069; 80074; 80177; 82728; 82948; 83036; 83540; 83550; 83690; 83735; 84100; 84443; 84484; 85014; 85018; 85025; 85027; 85610; 85730; 86704; 86706; 86850; 86900; 86901; 93005; 93017; 93306; 93970; 96372; 96374; 96376; 97110; 97116; 97162; 97165; 97535; 99285; A9270; A9502; C1750; G0257; G0378; J0690; J1644; J1815; J2405; J2704; J3010; J7030; J7040; Q5105

== ENCOUNTER 2023-07-22 10:13 | Emergency (ER) | payer MEDICARE, SELFPAY ==
[2023-07-22] VITALS (9 sets, daily range): BP systolic 118–139; BP diastolic 59–99; PULSE 86–92; RESP 17–30; TEMP 36.4; O2SAT 96–100
--- NOTE | ~2023-07-22 | XR_ITS ---
Portable chest x-ray Comparison: 01/25/2021 Clinical History: Shortness of breath Findings: There is hazy airspace disease left lung base. Right lung essentially clear. Cardiomedias tinal silhouette is stable. Extensive thoracic spinal fixation hardware is present, new from prior ex am. Impression: Left basilar pneumonia versus asymmetric pulmonary edema. Thoracic spinal fixation hardware, new from prior exam. Reviewed, dictated and finalized at location . Impression: Left basilar pneumonia versus asymmetric pulmonary edema. Thoracic spinal fixation hardware, new from prior exam.
--- NOTE | 2023-07-22 10:23 | ECG_ITS ---
Test Date: 2023-07-22 10:25:42 Measurements Intervals [place] Rate: 84 P: 33 WV: 140 QRS: -9 QRSD: 80 T: 70 QT: 390 QTc: 462 Interpretive Statements SINUS RHYTHM LOW QRS VOLTAGE IN PRECORDIAL LEADS [QRS DEFLECTION < 1.0 mV IN CHEST LEADS] No previous ECG available for comparison Electronically Signed On 07-22-2023 11:39:20 CDT by Hattie Gardner M.D.
[2023-07-22 10:39] LABS: Basophils Percent Auto 0.3 % (0.2-1.2); Eosinophils Absolute Auto 0.1 K/mm3 (0-0.3); Eosinophils Percent Auto 1.3 % (0-4.4); Hemoglobin 9.6 g/dL (12.0-15.0); Immature Granulocyte Absolute 0.04 K/mm3 (0.00-0.031); Immature Granulocyte Percent A 0.4 % (0-0.5); Lymphocytes Absolute Auto 1.39 K/mm3 (0.9-3.2); Lymphocytes Percent Auto 13.8 % (18.3-44.2); Mean Corpuscular HGB Conc 33.1 g/dl (32-36); Mean Corpuscular Hemoglobin 32.1 pg (26-34); Mean Platelet Volume 10.7 fl (7.4-10.4); Monocytes Absolute Auto 0.5 K/mm3 (0.1-0.6); Monocytes Percent Auto 5.2 % (2.6-8.5); Platelet Count Result 181 k/mm3 (150-375); Red Blood Count 2.99 M/mm3 (4.2-5.4); Red Cell Distribution Width 12.1 % (11.5-14.5); White Blood Count 10.1 K/mm3 (4.5-10.0)
[2023-07-22 10:50] LABS: Alanine Aminotransferase 61 U/L (6-35); Albumin Level 3.7 g/dL (3.5-5.1); Alkaline Phosphatase 72 U/L (38-126); Anion Gap 5 mmol/L (4-12); Aspartate Amino Transferase 87 U/L (14-36); Bilirubin,Total 0.6 mg/dL (0.2-1.3); Blood Urea Nitrogen 23 mg/dL (7-17); Calcium 8.4 mg/dL (8.4-10.2); Carbon Dioxide 29 mmol/L (22-30); Chloride 102 mmol/L (98-107); Estimated CRCL calculation 16 ml/min; Estimated Glomerular Filt Rate 20; Glucose 83 mg/dL (65-110); Potassium 3.7 mmol/L (3.4-5.0); Sodium 136 mmol/L (137-145)
[2023-07-22 11:11] LABS: Magnesium 1.9 mg/dL (1.6-2.3)
[2023-07-22] MEDS: IPRATROPIUM BR 0.02% INH SOLN 0.5 MG/2.5 ML VIAL INHALATION (11:11)
[2023-07-22] MEDS: ALBUTEROL SULFATE NEB 2.5 MG/3 ML INH INHALATION (11:11)
[2023-07-22 11:15] LABS: Influenza A QL RT-PCR Negative (Negative); Influenza B QL RT-PCR Negative (Negative); SARS-CoV-2 RNA PCR Negative (Negative)
[2023-07-22 11:24] LABS: NT Pro B Type Natriuretic Pept 1860 pg/mL (19.9-100); Troponin I 0.015 ng/mL (0.000-0.034)
--- NOTE | 2023-07-22 13:27 | ECG_ITS ---
Test Date: 2023-07-22 13:36:38 Measurements Intervals [place] Rate: 87 P: 15 NE: 146 QRS: -10 QRSD: 89 T: 64 QT: 397 QTc: 480 Interpretive Statements SINUS RHYTHM MINIMAL VOLTAGE CRITERIA FOR LVH, CONSIDER NORMAL VARIANT [MEETS CRITERIA IN ONE OF: R(aVL), S(V1), R(V5), R(V5/V6)+S(V1)] Compared to ECG 07/22/2023 10:25:42 No significant changes Electronically Signed On 07-22-2023 13:55:59 CDT by Hattie Gardner M.D.
[2023-07-22 13:47] LABS: Glucose Point of Care 51 mg/dl (65-105)
--- NOTE | 2023-07-22 13:49 | PC.NURSE ---
Pt reports feeling as though her BS is dropping, checked bedside glucose and results were 51. EDP Dr Moore notified and gave VORB for orange juice and snack, this RN provided.
--- NOTE | 2023-07-22 14:10 | PC.NURSE ---
BS 73 at this time, pt is currently eating, advised to continue
[2023-07-22 14:12] LABS: Glucose Point of Care 73 mg/dl (65-105)
[2023-07-22 14:56] LABS: Troponin I 0.018 ng/mL (0.000-0.034)
--- NOTE | 2023-07-22 15:20 | ED.SOB ---
HPI - SOB/Dyspnea General Chief Complaint: Shortness of Breath/Dyspnea Stated Complaint: cramps Time Seen by Provider: 07/22/23 10:31 History of Present Illness HPI Narrative: Patient is a 77-year-old female who presents ER with body cramping. Arm/ neck/legs as well as the chest. Began during dialysis. Associated shortness of breath. Reports this happens to her on occasion while getting dialysis. Denies fevers or chills or sweats. No vomiting. She takes muscle relaxers regularly for her cramps. Patient also reports that she has been having a cough on and off over last couple weeks but is worse today with the spasming. Related Data Home Medications Medication Instructions Recorded Confirmed diclofenac sodium 1 % topical gel topical 01/23/21 ergocalciferol (vitamin D2) 1,250 1,250 mcg PO DAILY 01/23/21 01/24/21 mcg (50,000 unit) capsule (Vitamin D2) levetiracetam 250 mg tablet 250 mg PO DAILY 01/23/21 01/24/21 oxycodone 5 mg tablet 5 mg PO Q4H PRN Pain 01/23/21 01/23/21 paroxetine HCl 20 mg tablet mg PO 01/23/21 Allergies Allergy/AdvReac Type Severity Reaction Status Date / Time No Known Allergies Allergy Unknown Verified 01/23/21 15:55 Review of Systems Review of Systems: All systems reviewed & are unremarkable except as noted in HPI and below Constitutional: Constitutional: Reports no additional constitutional complaints ENT: Reports system reviewed and no additional complaints, except as documented Cardiovascular: Cardiovascular: Reports chest pain, Denies rapid heart rate and Denies radiating jaw, neck or arm pain Respiratory: Respiratory: Reports cough and Reports dyspnea Musculoskeletal: Musculoskeletal: Denies back pain, Denies arthralgias, Denies joint swelling and Reports muscle cramps [facility] Past Medical History Medical History (Updated 07/22/23 @ 15:29 by Jan Moore MD) 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 Status post left breast mastectomy and chemoradiation. Currently taking Faslodex. Dr. Jacome. Chronic anemia Chronic kidney disease, stage 5 Depression with anxiety Hypertension Insulin dependent type 2 diabetes mellitus Seizure disorder Vitamin D deficiency Surgical History Surgical History History of cholecystectomy History of hysterectomy History of left mastectomy Status post creation of arteriovenous fistula Family History Family History Other Chronic kidney disease Diabetes mellitus Hypertension Social History Social History Social History: The patient lives in her own home in [place]. She is and has no children. 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 She smoked remotely and quit over 40 years ago. No alcohol or illicit substance abuse. She designates her dear friend Annie Meadows as her surrogate decision maker and she wishes to be a full code. Smoking packs per day: 1 Smoking cigarettes per day: 20.0 Smoking status: Former smoker Alcohol intake: never Substance use: never Spiritual care concerns: No Exam Narrative: GENERAL: Chronically ill-appearing, well-nourished, and in mild distress. HEAD: Normocephalic, atraumatic. ENT: Mucous membranes moist. NECK: Supple. CHEST: Clear to auscultation. No respiratory distress. HEART: Regular rate and rhythm. Normal peripheral pulses. ABDOMEN: Soft, nontender, nondistended. EXTREMITIES: Normal range of motion. No edema. SKIN: Warm, dry, no rash. NEURO: Alert and oriented x3. PSYCH: Normal mood and affect. Course Course Emergency Course: regular spasming of the patient's neck in arms and legs. This all seems to improved after getting a breathing min treatment for her dyspnea. Troponins negative x2. X-ray with possible pneumonia. Patient be started on antibiotic for home. Vi
== END 2023-07-22 15:43 | disposition home or self-care (01) ==
PROVIDERS: Emergency Provider Emergency Medicine
DX: J18.9 Pneumonia, unspecified organism (principal); Z20.822 Contact with and (suspected) exposure to COVID-19; I12.0 Hypertensive chronic kidney disease with stage 5 chronic kidney disease or end stage renal disease; E11.22 Type 2 diabetes mellitus with diabetic chronic kidney disease; Z99.2 Dependence on renal dialysis; N18.5 Chronic kidney disease, stage 5; G40.909 Epilepsy, unspecified, not intractable, without status epilepticus; E55.9 Vitamin D deficiency, unspecified; D64.9 Anemia, unspecified; Z85.3 Personal history of malignant neoplasm of breast; Z85.118 Personal history of other malignant neoplasm of bronchus and lung; Z87.891 Personal history of nicotine dependence; Z90.49 Acquired absence of other specified parts of digestive tract; Z90.710 Acquired absence of both cervix and uterus; Z90.12 Acquired absence of left breast and nipple; Z79.82 Long term (current) use of aspirin; Z79.899 Other long term (current) drug therapy
CPT/HCPCS: 36415; 71045; 80053; 82948; 83735; 83880; 84484; 85025; 87636; 93005; 94640; 99284